=== PATIENT | male | born 1930 | race Caucasian/White ===

== ENCOUNTER 2017-07-15 16:10 | Emergency (ER) | payer MEDICARE, OTHER ==
[2016-06-20 12:52] VITALS: Wt 84.1 kg
--- NOTE | 2017-07-15 16:22 | ER Report ---
History and Physical Time Seen By MD: 16:21 Hx. of Stated Complaint: patient presents via EMS from [facility] after falling gettin gout of shower and hitting R back of head, fall was witnessed, no LOC, [facility] staff report patient was somewhat disoriented after fall. upon arrival patient is alert to person and place but not time HPI/ROS CHIEF COMPLAINT: Fall head trauma HISTORY OF PRESENT ILLNESS: 86-year-old male from a controlled living facility got up out of his shower with a witnessed he was turning and walking with his walker lost his balance fell to the side striking his head on drywall leaving an imprint of his head into the drywall not complaining of any head or neck discomfort no loss of consciousness was alert before the fall recalls the fall is alert after the fall was noted pinpoint pupils however he was on medication for pain which is most likely the indication and call for that patient is denying any chest back abdominal pain upper extremity pain sent here by EMS for emergent evaluation for probable head trauma REVIEW OF SYSTEMS: Respiratory: No cough, no dyspnea. Cardiovascular: No chest pain, no palpitations. Gastrointestinal: No vomiting, no abdominal pain. Musculoskeletal: No back pain. Remainder of the 14 system rev: Yes Allergies: Coded Allergies: No Known Allergies (Verified Allergy, Mild, 07/15/17) Home Meds Reported Medications Acetaminophen (TYLENOL EXTRA STRENGTH) 500 Mg Tablet, 500 MG PO, TAB 07/15/17 Warfarin Sodium (WARFARIN SODIUM) 5 Mg Tablet, 5 MG PO QDAY, TAB 07/15/17 Polyethylene Glycol 3350 (MIRALAX) 17 Gm Powd.pack, 8.5 GM PO DAILY, PKT 06/19/16 Aspirin (ASPIR 81) 81 Mg Tablet.dr, 81 MG PO QDAY, TAB 06/19/16 Furosemide (FUROSEMIDE) 40 Mg Tablet, 1 TAB PO DAILY, TAB 06/19/16 Sodium Fluoride (DENTA 5000 PLUS) 51 Gm Cream..g., 51 GM DT 06/19/16 Docusate Sodium (COLACE) 100 Mg Capsule, 100 MG PO, CAPSULE 06/19/16 Cyclosporine (RESTASIS) 1 Each Droperette, 1 EACH OP 06/19/16 Atorvastatin Calcium (LIPITOR) 10 Mg Tablet, 1 TAB PO QDAY, TAB 06/19/16 Melatonin (MELATONIN) 3 Mg Tablet, 3 MG PO 06/19/16 Dextran 70/Hypromellose (ARTIFICIAL TEARS) 1 Each Droperette, 1 EACH OP BID 06/19/16 Cholecalciferol (Vitamin D3) (VITAMIN D) 1,000 Unit Tablet, 1000 UNIT PO DAILY 06/19/16 Venlafaxine Hcl (VENLAFAXINE HCL ER) 37.5 Mg Cap.er.24h, 37.5 MG PO QDAY 06/19/16 Multivitamin (MULTI VITAMIN DAILY) 1 Each Tablet, 1 EACH PO 06/19/16 Losartan Potassium (LOSARTAN POTASSIUM) 25 Mg Tablet, 25 MG PO QDAY 06/19/16 Levothyroxine Sodium (LEVOTHYROXINE SODIUM) 88 Mcg Tablet, 88 MCG PO QDAY 06/19/16 Bisacodyl (DULCOLAX) 10 Mg Supp.rect, 10 MG RC, SUPP.RECT 06/19/16 Metoprolol Succinate (METOPROLOL SUCCINATE) 25 Mg Tab.er.24h, 1 TAB PO QDAY, TAB 01/19/15 Tamsulosin Hcl (Flomax) 0.4 Mg Cap, 0.4 MG PO QHS, 0 Refills 12/17/10 Oxybutynin Chloride (Ditropan) 5 Mg Tab, 10 MG PO HS, 0 Refills TAKE TWO 5 MG TABLETS ONCE PER DAY. 12/17/10 Discontinued Scripts Cefdinir 300 Mg Cap (OMNICEF 300 MG CAP (OR EQUIV)) 300 Mg Capsule, 300 MG PO BID, #6 CAPSULE Prov:YAEL CROCKETT MD 06/23/16 NYSTATIN 938304 UNT/ML Topical Cream (NYSTATIN 930423 UNT/ML Topical Cream) 15 Gm Cream..g., 0 GM TP BID, #0 Prov:YAEL CROCKETT MD 06/23/16 Acetaminophen (TYLENOL EXTRA STRENGTH) 500 Mg Tablet, 1000 MG PO Q8H Y for PAIN , #0 TAB Prov:YAEL CROCKETT MD 06/23/16 Warfarin Sodium (WARFARIN SODIUM) 5 Mg Tablet, 5 MG PO QDAY, #30 TAB Prov:MARGARITA CROCKER MD 01/24/15 Reviewed Nurses Notes: Yes Old Medical Records Reviewed: Yes Hx Smoking: No Smoking Status: Never Smoker Exposure to Second Hand Smoke?: No Hx Substance Use Disorder: No Hx Alcohol Use: No Constitutional Vital Sign - Last 24 Hours 07/15/17 07/15/17 07/15/17 07/15/17 16:13 16:14 16:25 16:30 Temp 97.8 Pulse 78 75 Resp 16 21 B/P (MAP) 187/115 (139) 187/115 163/113 (130) Pulse Ox 90 91 Physical Exam General Appearance: The patient is alert, has no immediate need for airway protection and no current signs of toxicity. No apparent distress Eyes: Equal round and minimally reactive pinpoint 2-3 mm equal bilateral Respiratory: Chest is non tender, lungs are clear to auscultation. Cardiac: regular rate and rhythm [ ] Gastrointestinal: Abdomen is soft and non tender, no masses, bowel sounds normal. Musculoskeletal: Normal Neck is supple and non tender. In C-spine precaution Extremities have full range of motion and are non tender. Skin: No rashes or lesions. [ ] DIFFERENTIAL DIAGNOSIS: After history and physical exam differential diagnosis was considered for intracranial bleed mass cervical spinal fracture Medical Decision Making Data Points Result Diagram: 07/15/17 1624 07/15/17 1624 Laboratory Hematology Test 07/15/17 16:24 Red Blood Count 4.32 M/uL (4.00-5.60) Mean Corpuscular Volume 94.9 fL (80.0-96.0) Mean Corpuscular Hemoglobin 32.4 pg (26.0-33.0) Mean Corpuscular Hemoglobin Concent 34.2 g/dL (32.0-36.0) Red Cell Distribution Width 16.4 % (11.5-14.5) Mean Platelet Volume 7.9 fL (7.2-11.1) Neutrophils (%) (Auto) 66.7 % (39.4-72.5) Lymphocytes (%) (Auto) 22.6 % (17.6-49.6) Monocytes (%) (Auto) 7.6 % (4.1-12.4) Eosinophils (%) (Auto) 2.8 % (0.4-6.7) Basophils (%) (Auto) 0.3 % (0.3-1.4) Nucleated RBC Relative Count (auto) 0.1 /100WBC Neutrophils # (Auto) 5.1 K/uL (2.0-7.4) Lymphocytes # (Auto) 1.7 K/uL (1.3-3.6) Monocytes # (Auto) 0.6 K/uL (0.3-1.0) Eosinophils # (Auto) 0.2 K/uL (0.0-0.5) Basophils # (Auto) 0.0 K/uL (0.0-0.1) Nucleated RBC Absolute Count (auto) 0.01 K/uL Sodium Level 142 mmol/L (137-145) Potassium Level 4.0 mmol/L (3.5-5.0) Chloride Level 102 mmol/L (98-107) Carbon Dioxide Level 26 mmol/L (22-30) Blood Urea Nitrogen 30 mg/dl (9-21) Creatinine 1.50 mg/dl (0.66-1.25) Glomerular Filtration Rate Calc 44.2 Random Glucose 98 mg/dl (75-110) Calcium Level 9.1 mg/dl (8.4-10.2) Total Bilirubin 1.0 mg/dl (0.2-1.3) Aspartate Amino Transf (AST/SGOT) 34 U/L (0-35) Alanine Aminotransferase (ALT/SGPT) 35 U/L (0-56) Alkaline Phosphatase 111 U/L (0-126) Troponin I 0.023 ng/ml Total Protein 8.1 gm/dl (6.3-8.2) Albumin 4.0 g/dl (3.5-5.0) Chemistry Test 07/15/17 16:24 White Blood Count 7.6 k/uL (4.5-11.0) Red Blood Count 4.32 M/uL (4.00-5.60) Hemoglobin 14.0 g/dL (14.0-18.0) Hematocrit 41.0 % (42.0-52.0) Mean Corpuscular Volume 94.9 fL (80.0-96.0) Mean Corpuscular Hemoglobin 32.4 pg (26.0-33.0) Mean Corpuscular Hemoglobin Concent 34.2 g/dL (32.0-36.0) Red Cell Distribution Width 16.4 % (11.5-14.5) Platelet Count 192 K/uL (150-450) Mean Platelet Volume 7.9 fL (7.2-11.1) Neutrophils (%) (Auto) 66.7 % (39.4-72.5) Lymphocytes (%) (Auto) 22.6 % (17.6-49.6) Monocytes (%) (Auto) 7.6 % (4.1-12.4) Eosinophils (%) (Auto) 2.8 % (0.4-6.7) Basophils (%) (Auto) 0.3 % (0.3-1.4) Nucleated RBC Relative Count (auto) 0.1 /100WBC Neutrophils # (Auto) 5.1 K/uL (2.0-7.4) Lymphocytes # (Auto) 1.7 K/uL (1.3-3.6) Monocytes # (Auto) 0.6 K/uL (0.3-1.0) Eosinophils # (Auto) 0.2 K/uL (0.0-0.5) Basophils # (Auto) 0.0 K/uL (0.0-0.1) Nucleated RBC Absolute Count (auto) 0.01 K/uL Glomerular Filtration Rate Calc 44.2 Calcium Level 9.1 mg/dl (8.4-10.2) Total Bilirubin 1.0 mg/dl (0.2-1.3) Aspartate Amino Transf (AST/SGOT) 34 U/L (0-35) Alanine Aminotransferase (ALT/SGPT) 35 U/L (0-56) Alkaline Phosphatase 111 U/L (0-126) Troponin I 0.023 ng/ml Total Protein 8.1 gm/dl (6.3-8.2) Albumin 4.0 g/dl (3.5-5.0) ED Course/Re-evaluation ED Course Clinical course medical decision making 86-year-old male mechanical fall striking his head on drywall no LOC responsive at the time this was a witnessed fall had C-spine were both performed no obvious fractures dislocation subluxation or intracranial issues chest x-ray shows no fractures pneumothoraces desist increased interstitial markings could be just normal parenchyma versus early pneumonitis his white count is negative he has no respiratory complaints I will not treat at this time but will advise him to follow-up with his attending symptomatic with primary care blood work looked fine EKG was unchanged and unremarkable patient would discharge diagnosis mechanical fall Decision to Disposition Date: Jul 15, 2017 Decision to Disposition Time: 17:41 Depart Departure Latest Vital Signs Vital Signs Date Time Temp Pulse Resp B/P (MAP) Pulse Ox O2 Delivery O2 Flow Rate FiO2 07/15/17 16:30 163/113 (130) 4/4/18 16:25 75 21 91 07/15/17 16:14 97.8 Impression: Primary Impression: Concussion Condition: Improved Disposition: HOME OR SELF-CARE Referrals: ROSANA GEE MD (PCP) 5 Days Patient Instructions: Concussion (DC) CAYETANO BRIZUELA MD Jul 15, 2017 16:22
--- NOTE | 2017-07-15 16:32 | EKG ---
FACILITY: [facility] [place] PATIENT NAME: DARIO HADDAD : [id number] MR: [id number] V: [id number] EXAM DATE: ORDERING PHYSICIAN: CAYETANO BRIZUELA TECHNOLOGIST: INES Blount Reason : TRAUMA Blood Pressure : / mmHG Vent. Rate : 073 BPM Atrial Rate : 064 BPM P-R Int : 000 ms QRS Dur : 104 ms QT Int : 436 ms P-R-T Axes : 000 050 140 degrees QTc Int : 480 ms Atrial fibrillation Nonspecific ST and T wave abnormality T flattening/inversion consistent with inferior ischemia vs normal variant When compared with ECG of 19-JAN-2015 13:51, Nonspecific T wave abnormality, improved in Inferior leads Confirmed by YAEL CROCKETT ([id number]) on 07/15/2017 5:50:33 PM Referred By: CHATA Confirmed By:YAEL CROCKETT
[2017-07-15 16:37] LABS: PLATELET COUNT, AUTOMATED 192 K/uL (150-450)
[2017-07-15] MEDS ORDERED: ACET500T68 PO (16:52)
[2017-07-15] MEDS ORDERED: WARF5TAB23 PO (16:52)
[2017-07-15 17:30] VITALS: BP 157/109
--- NOTE | 2017-07-15 17:30 | RADIOLOGY IMAGING REPORT ---
FACILITY: [facility] PATIENT NAME: Candelario Hernandez : 1930 MR: [id number] V: [id number] EXAM DATE: ORDERING PHYSICIAN: CAYETANO BRIZUELA TECHNOLOGIST: [facility] Patient: Candelario Hernandez : 1930 Visit/Account:[id number] Date of Sevice: 07/15/2017 Exam type: CHEST SINGLE AP History: trauma Comparison: June 22, 2016. Findings: Cardiac silhouette is enlarged. There are coarse initial changes throughout the lungs that appears s lightly more prominent when compared to the prior study. There is no evidence of pleural effusions. No gross evidence of pneumothorax or pneumomediastinum on this semiupright view. A small chronic bl unting of left costophrenic angle IMPRESSION: 1. Cardiomegaly with diffuse interstitial prominence of the lungs slightly more prominent when rocael red the prior study could represent superimposed acute interstitial process such as primary edema or interstitial pneumonia. Report Dictated By: Nancy Taylor MD at 07/15/2017 5:24 PM Report E-Signed By: Nancy Taylor MD at 07/15/2017 5:26 PM WSN:[id number]
--- NOTE | 2017-07-15 17:32 | RADIOLOGY IMAGING REPORT ---
FACILITY: [facility] [place] PATIENT NAME: Candelario Hernandez : 1930 MR: [id number] V: [id number] EXAM DATE: ORDERING PHYSICIAN: CAYETANO BRIZUELA TECHNOLOGIST: Location: [facility] [place] Patient: Candelario Hernandez : 1930 Visit/Account:[id number] Date of Sevice: 07/15/2017 EXAMINATION: Head CT without intravenous contrast History:Trauma TECHNIQUE: Contiguous axial images were obtained from the skull base to the vertex without intraven ous contrast. One of the following dose optimization techniques was utilized in the performance of th is exam: Automated exposure control; adjustment of the mA and/or kV according to the patient's size; or use of an iterative reconstruction technique. Specific details can be referenced in the facility 's radiology CT exam operational policy. COMPARISON STUDIES: 12/11/2010, 12/13/2010 FINDINGS: Visualized mastoid air cells / paranasal sinuses: negative Skull base / calvarium: negative White matter: Moderate chronic small vessel disease. Remote right basal ganglia infarct. Dural venous sinuses / arterial structures: Diffusely atherosclerotic. Ventricles / sulci / fissures: Enlarged but within normal limits for age. Masses / hemorrhage / midline shift: negative Extra-axial spaces: negative IMPRESSION: 1. No evidence of fracture or acute intracranial posttraumatic changes. 2. Moderate chronic small vessel disease with evidence of remote right basal ganglia infarct. Report Dictated By: Tomi Sahu MD at 07/15/2017 5:26 PM Report E-Signed By: Tomi Sahu MD at 07/15/2017 5:29 PM WSN:[id number]
--- NOTE | 2017-07-15 17:36 | RADIOLOGY IMAGING REPORT ---
FACILITY: [facility] PATIENT NAME: Candelario Hernandez : 1930 MR: [id number] V: [id number] EXAM DATE: ORDERING PHYSICIAN: CAYETANO BRIZUELA TECHNOLOGIST: Location: [facility] [place] Patient: Candelario Hernandez : 1930 Visit/Account:[id number] Date of Sevice: 07/15/2017 EXAMINATION: Cervical spine CT History: Trauma COMPARISON STUDIES: none TECHNIQUE: Axial images were obtained through the cervical spine without IV contrast administration. Coronal and sagittal reformatted images were obtained from the axial source data. One of the followi dose optimization techniques was utilized in the performance of this exam: Automated exposure cont rol; adjustment of the mA and/or kV according to the patient's size; or use of an iterative reconstr uction technique. Specific details can be referenced in the facility's radiology CT exam operational policy. FINDINGS: Moderate to severe degenerative disc changes throughout the cervical spine. No evidence of fracture. Craniocervical junction intact. Soft tissues notable for atherosclerotic calcifications. Lung apices clear. IMPRESSION: Multilevel spondylosis. No evidence of fracture. Report Dictated By: Tomi Sahu MD at 07/15/2017 5:29 PM Report E-Signed By: Tomi Sahu MD at 07/15/2017 5:32 PM WSN:[id number]
== END 2017-07-15 18:13 | disposition home or self-care (01) ==
LOC: ER 16:19
DX: S06.0X9A Concussion with loss of consciousness of unspecified duration, initial encounter (principal); W01.198A Fall on same level from slipping, tripping and stumbling with subsequent striking against other object, initial encounter; I48.91 Unspecified atrial fibrillation
CPT/HCPCS: 70450; 71045; 72125; 82040; 82247; 82310; 82374; 82435; 82565; 82947; 84075; 84132; 84155; 84295; 84450; 84460; 84484; 84520; 85025; 93005; 99283

== ENCOUNTER → 2017-07-15 | Outpatient (CLI) | payer MEDICARE, OTHER ==
[2016-06-20 12:52] VITALS: BMI 24.7
[~2017-07-15] MED LIST: ACE3 PO; ACE500 PO; ACET500T68 PO; ALB0.5 INH; AMI200 PO; AMLO2.5T74 PO; ASP325 PO; ASPI-1471 PO; ASPI-715 PO; ATOR10TA24 PO; AZIT-1 PO; AZIT500T47 PO; BISA-236 RC; CEF300 PO; CHOL100052 PO; CYCL1DRO6 OP; DEXT1DRO15 OP; DILCD120 PO; DILT180C80 PO; DOCU-416 PO; FIN5 PO; FLU20 PO; FURO-47 PO; FURO20TA19 PO; FURO20TA2 PO; GUALA600 PO; HYDR473S4 PO; IPRA3AMP21 IH; LEV75 PO; LEVO88TA45 PO; LISI-346 PO; LISI-362 PO; LOR5 PO; LOR5/325 PO; LOSA25TA50 PO; LOSA50TA72 PO; MEC125 PO; MEC25 PO; MECL-205 PO; MELA3TAB31 PO; METO25TA23 PO; METO50TA PO; MIR PO; MOM PO; MULT1TAB64 PO; NYST15CR32 TP; OLM20 PO; OXY5 PO; OXYXL5 PO; POLY17PO25 PO; POTA20TA94 PO; PRE20 PO; PRED20TA6 PO; SIMV-42 PO; SODI51CR DT; TAM4 PO; TERA10CA42 PO; TIO18R INH; TOLT2TAB5 PO; VAL80 PO; VENL37.53 PO; WAR2 PO; WAR5 PO; WAR75 PO; WARF5TAB23 PO; [UNRECOGNIZED DRUG - CODE] PO
== END ==
LOC: AMB 15:52
PROVIDERS: ATTEND Nurse Practitioner
DX: R51 Headache (principal); E16.2 Hypoglycemia, unspecified; W18.30XA Fall on same level, unspecified, initial encounter; Y92.129 Unspecified place in nursing home as the place of occurrence of the external cause
CPT/HCPCS: A0425; A0427

== ENCOUNTER → 2017-07-15 | Outpatient (CLI) | payer MEDICARE, OTHER ==
[2016-06-20 12:52] VITALS: BMI 24.7
== END ==
LOC: AMB 18:00
PROVIDERS: ATTEND Nurse Practitioner
DX: S06.0X0A Concussion without loss of consciousness, initial encounter (principal)
CPT/HCPCS: A0425; A0428

== ENCOUNTER → 2017-11-18 | Outpatient (REF) | payer MEDICARE, OTHER ==
[2016-06-20 12:52] VITALS: BMI 24.7
[~2017-11-18] MED LIST changes: +IPRA3AMP10 IH; -IPRA3AMP21 IH
== END ==
LOC: ZZSENDIN 07:10
PROVIDERS: ATTEND Family Medicine
DX: I21.4 Non-ST elevation (NSTEMI) myocardial infarction (principal)
CPT/HCPCS: 85027

== ENCOUNTER → 2017-12-16 | Outpatient (REF) | payer MEDICARE, OTHER ==
[2016-06-20 12:52] VITALS: BMI 24.7
== END ==
LOC: ZZSENDIN 17:10
PROVIDERS: ATTEND Family Medicine
DX: I21.4 Non-ST elevation (NSTEMI) myocardial infarction (principal); I25.10 Atherosclerotic heart disease of native coronary artery without angina pectoris
CPT/HCPCS: 85027

== ENCOUNTER → 2018-04-20 | Outpatient (REF) | payer MEDICARE, OTHER ==
[2016-06-20 12:52] VITALS: BMI 24.7
[~2018-04-20] MED LIST changes: -AMLO2.5T74 PO; +AMLO2.5T78 PO; -LOSA25TA50 PO; +LOSA25TA57 PO; -LOSA50TA72 PO; +LOSA50TA80 PO
== END ==
LOC: ZZSENDIN 12:00
PROVIDERS: ATTEND Family Medicine
DX: C44.319 Basal cell carcinoma of skin of other parts of face (principal)
CPT/HCPCS: 88305

== ENCOUNTER → 2018-05-24 | Outpatient (REF) | payer MEDICARE, OTHER, MEDICAID ==
[2016-06-20 12:52] VITALS: BMI 24.7
== END ==
LOC: ZZLCC 17:03
PROVIDERS: ATTEND Family Medicine
DX: I21.4 Non-ST elevation (NSTEMI) myocardial infarction (principal); Z79.899 Other long term (current) drug therapy
CPT/HCPCS: 85027

== ENCOUNTER → 2018-05-28 | Outpatient (CLI) | payer MEDICARE, OTHER ==
[2016-06-20 12:52] VITALS: BMI 24.7
== END ==
LOC: LAB 13:17
PROVIDERS: ATTEND Surgery
DX: C44.319 Basal cell carcinoma of skin of other parts of face (principal)
CPT/HCPCS: 88305

== ENCOUNTER 2018-08-18 02:38 | Inpatient (IN) | payer MEDICARE, OTHER ==
[2016-06-20 12:52] VITALS: Ht 182.9 cm; Wt 92.1 kg
[~2018-08-18] VITALS: Ht 182.9 cm; Wt 92.1 kg
[2018-08-18] VITALS (33 sets, daily range): BP systolic 77–133; BP diastolic 54–98
[~2018-08-18 02:38] MED LIST changes: -LORA-1455 PO; -MORP100S32 PO
[2018-08-18] MEDS ORDERED: NS(*) 0.9% 1000 ML BAG 1,000 ML IV ONE (02:48)
[2018-08-18] MEDS ORDERED: ONDANSETRON 4 MG/2 ML VIAL IVP ONE (02:50)
[2018-08-18 02:56] LABS: PLATELET COUNT, AUTOMATED 315 K/uL (150-450)
--- NOTE | 2018-08-18 03:07 | ER Report ---
History and Physical Time Seen By MD: 02:44 Hx. of Stated Complaint: WEAKNESS HPI/ROS CHIEF COMPLAINT: Vomiting, weakness HISTORY OF PRESENT ILLNESS: 87-year-old male sent from [facility] with vomiting and clamminess, diaphoresis. Patient was started on doxycycline on 08/14/18 for bronchitis. Patient is DO NOT RESUSCITATE. See detention paperwork for additional details. Patient's very lethargic on arrival. He follows simple instructions, not speaking verbally. Later after pain. Normal saline bolus. She is more alert and responsive. He's stating he is unable to cough up any phlegm. REVIEW OF SYSTEMS: Respiratory: As above Cardiovascular: No chest pain, no palpitations. Gastrointestinal: As above Musculoskeletal: No back pain. Allergies: Coded Allergies: No Known Allergies (Verified Allergy, Mild, 08/18/18) Home Meds Reported Medications Acetaminophen (TYLENOL EXTRA STRENGTH) 500 Mg Tablet, 500 MG PO, TAB 07/15/17 Warfarin Sodium (WARFARIN SODIUM) 5 Mg Tablet, 5 MG PO QDAY, TAB 07/15/17 Polyethylene Glycol 3350 (MIRALAX) 17 Gm Powd.pack, 8.5 GM PO DAILY, PKT 06/19/16 Aspirin (ASPIR 81) 81 Mg Tablet.dr, 81 MG PO QDAY, TAB 06/19/16 Furosemide (FUROSEMIDE) 40 Mg Tablet, 1 TAB PO DAILY, TAB 06/19/16 Sodium Fluoride (DENTA 5000 PLUS) 51 Gm Cream..g., 51 GM DT 06/19/16 Docusate Sodium (COLACE) 100 Mg Capsule, 100 MG PO, CAPSULE 06/19/16 Cyclosporine (RESTASIS) 1 Each Droperette, 1 EACH OP 06/19/16 Atorvastatin Calcium (LIPITOR) 10 Mg Tablet, 1 TAB PO QDAY, TAB 06/19/16 Melatonin (MELATONIN) 3 Mg Tablet, 3 MG PO 06/19/16 Dextran 70/Hypromellose (ARTIFICIAL TEARS) 1 Each Droperette, 1 EACH OP BID 06/19/16 Cholecalciferol (Vitamin D3) (VITAMIN D) 1,000 Unit Tablet, 1000 UNIT PO DAILY 06/19/16 Venlafaxine Hcl (VENLAFAXINE HCL ER) 37.5 Mg Cap.er.24h, 37.5 MG PO QDAY 06/19/16 Multivitamin (MULTI VITAMIN DAILY) 1 Each Tablet, 1 EACH PO 06/19/16 Losartan Potassium (LOSARTAN POTASSIUM) 25 Mg Tablet, 25 MG PO QDAY 06/19/16 Levothyroxine Sodium (LEVOTHYROXINE SODIUM) 88 Mcg Tablet, 88 MCG PO QDAY 06/19/16 Bisacodyl (DULCOLAX) 10 Mg Supp.rect, 10 MG RC, SUPP.RECT 06/19/16 Metoprolol Succinate (METOPROLOL SUCCINATE) 25 Mg Tab.er.24h, 1 TAB PO QDAY, TAB 01/19/15 Tamsulosin Hcl (Flomax) 0.4 Mg Cap, 0.4 MG PO QHS, 0 Refills 12/17/10 Oxybutynin Chloride (Ditropan) 5 Mg Tab, 10 MG PO HS, 0 Refills TAKE TWO 5 MG TABLETS ONCE PER DAY. 12/17/10 Past Medical/Surgical History Past medical history dysuria, dysphagia during oral phase, difficulty walking, not otherwise classified repeated falls, insomnia, nonspecific, hypothyroidism, unspecific, hyperlipidemia on specific major depressive disorder, single episode, unspecified non-ST elevation myocardial infarction 05/07/2015 ventricular tachycardia, atrial fibrillation, chronic systolic congestive heart failure, osteoarthritis, chronic kidney disease stage III, moderate, BPH, with out lower urinary tract symptoms Reviewed Nurses Notes: Yes Old Medical Records Reviewed: Yes Hx Smoking: No Smoking Status: Never Smoker Exposure to Second Hand Smoke?: No Hx Substance Use Disorder: No Hx Alcohol Use: No Constitutional Vital Sign - Last 24 Hours 08/18/18 08/18/18 08/18/18 08/18/18 02:38 02:42 02:45 03:00 Temp 97.9 Pulse ??? 94 Resp 18 B/P (MAP) 98/48 98/49 (65) 81/57 (65) Pulse Ox 96 O2 Delivery Nasal Cannula 08/18/18 08/18/18 08/18/18 08/18/18 03:30 03:38 03:46 03:50 Pulse 94 88 Resp 22 16 B/P (MAP) 92/63 (73) 107/72 (84) Pulse Ox 100 08/18/18 08/18/18 08/18/18 08/18/18 03:50 03:53 04:00 04:01 Pulse 91 91 90 Resp 16 Pulse Ox 97 99 99 O2 Delivery Nasal Cannula O2 Flow Rate 3.0 08/18/18 08/18/18 08/18/18 04:05 04:20 04:30 Pulse 89 85 Resp 23 25 B/P (MAP) 102/65 (77) Pulse Ox 100 95 Physical Exam Borderline hypotensive, afebrile, very lethargic, patient's O2 saturations are 90% on his usual 3 L. General Appearance: The patient is alert, has no immediate need for airway protection and no current signs of toxicity. Cool, pale, dry skin HEENT: Pupils equal and round no injection. Oropharynx with dry mucous membranes, Respiratory: Chest is non tender, right basilar Rales Cardiac: Irregular rate and rhythm, distant heart sounds Gastrointestinal: Abdomen is soft and non tender, no masses, bowel sounds normal. Musculoskeletal: Neck: Neck is supple and non tender. No JVD, no lymphadenopathy Extremities have full range of motion and are non tender. No edema, no calf tenderness Skin: No rashes or lesions. DIFFERENTIAL DIAGNOSIS: After history and physical exam differential diagnosis was considered for shortness of breath including but not limited to pulmonary infectious process, COPD, asthma, pulmonary embolus and congestive heart failure. Medication intolerance Medical Decision Making Data Points Result Diagram: 08/18/18 1915 08/18/18 1231 Laboratory Hematology Test 08/18/18 02:40 Total Bilirubin 0.9 mg/dl (0.2-1.3) Aspartate Amino Transf (AST/SGOT) 27 U/L (0-35) Alanine Aminotransferase (ALT/SGPT) 16 U/L (0-56) Alkaline Phosphatase 79 U/L (0-126) B-Type Natriuretic Peptide 383 pg/ml (0-100) Total Protein 7.4 g/dl (6.3-8.2) Albumin 3.5 g/dl (3.5-5.0) Amylase Level 84 U/L (0-110) Lipase 42 U/L (23-300) Chemistry Test 08/18/18 02:40 Total Bilirubin 0.9 mg/dl (0.2-1.3) Aspartate Amino Transf (AST/SGOT) 27 U/L (0-35) Alanine Aminotransferase (ALT/SGPT) 16 U/L (0-56) Alkaline Phosphatase 79 U/L (0-126) B-Type Natriuretic Peptide 383 pg/ml (0-100) Total Protein 7.4 g/dl (6.3-8.2) Albumin 3.5 g/dl (3.5-5.0) Amylase Level 84 U/L (0-110) Lipase 42 U/L (23-300) EKG/Imaging EKG Interpretation 12 lead EK Rhythm: Atrial fibrillation rate 95 bpm [place]: normal QRS: Old inferior Q waves ST segments: normal, comparison to previous EKG dated 07/15/17, no significant change Imaging X-ray: Single view portable x-ray was obtained. I viewed the images myself on the PACS system. My interpretation of the images is: There is haziness at the right base, questionable significance, comparison to previous chest film 07/15/17 probably no significant change. The radiologist interpretation had no clinically significant variation from this interpretation. ED Course/Re-evaluation Clinical Indication for ER IV: Hydration, IV Access ED Course Patient was admitted to an examination room. H&P was done. The differential diagnoses was considered. Patient was given a normal saline 500 mL bolus. He responded well to that. His pressures up. He's more alert and responsive. After hydration. His diagnostic studies return. Elevated white blood cell count of 17,000 with a left shift. His BUN/creatinine are nearly double his baseline chronic kidney disease. His INR returned at 5.4. His chest x-ray shows no obvious infiltrate, unchanged Compared to previous film from nearly a year ago 07/15/17. 08/18/2018 4:25:24 am case discussed with Dr. Sreedhar Birch hospitalist on- call, who accepts the patient for admission. Decision to Disposition Date: August 18, 2018 Decision to Disposition Time: 03:32 Depart Departure Latest Vital Signs Vital Signs Date Time Temp Pulse Resp B/P (MAP) Pulse Ox O2 Delivery O2 Flow Rate FiO2 08/18/18 04:30 102/65 (77) 08/18/18 04:20 85 25 95 08/18/18 03:50 Nasal Cannula 3.0 08/18/18 02:42 97.9 Impression: Primary Impression: COPD exacerbation Additional Impressions: Dehydration Leukocytosis Vomiting Congestive heart failure Atrial fibrillation Chronic anticoagulation Elevated INR CKD (chronic kidney disease) stage 3, GFR 30-59 ml/min Condition: Improved Disposition: Admitted from ER Referrals: ROSANA GEE MD (PCP) Problem Qualifiers Additional Impressions: Leukocytosis Leukocytosis type: unspecified Qualified Codes: D72.829 - Elevated white blood cell count, unspecified Vomiting Vomiting type: unspecified Vomiting Intractability: unspecified Nausea presence: unspecified Qualified Codes: R11.10 - Vomiting, unspecified Congestive heart failure Heart failure type: systolic Heart failure chronicity: chronic Qualified Codes: I50.22 - Chronic systolic (congestive) heart failure Atrial fibrillation Atrial fibrillation type: chronic Qualified Codes: I48.2 - Chronic atrial fibrillation SEBASTIAN MOREL DO August 18, 2018 03:07
--- NOTE | 2018-08-18 03:17 | EKG ---
FACILITY: [facility] - [place] PATIENT NAME: DARIO HADDAD : [id number] MR: [id number] V: [id number] EXAM DATE: ORDERING PHYSICIAN: SEBASTIAN MOREL TECHNOLOGIST: LUIS Blount Reason : CARDIAC Blood Pressure : / mmHG Vent. Rate : 095 BPM Atrial Rate : 153 BPM P-R Int : 000 ms QRS Dur : 098 ms QT Int : 392 ms P-R-T Axes : 000 004 192 degrees QTc Int : 492 ms Atrial fibrillation Inferior infarct , age undetermined Nonspecific ST-T findings inferolaterally Abnormal ECG Confirmed by SANCHEZ CROCKER ([id number]) on 08/18/2018 6:13:20 AM Referred By: Confirmed By:SANCHEZ CROCKER
--- NOTE | 2018-08-18 03:32 | RADIOLOGY IMAGING REPORT ---
FACILITY: [facility] [place] PATIENT NAME: Candelario Hernandez : 1930 MR: [id number] V: [id number] EXAM DATE: ORDERING PHYSICIAN: SEBASTIAN MOREL TECHNOLOGIST: Location: [facility] - [place] Patient: Candelario Hernandez : 1930 Visit/Account:[id number] Date of Sevice: 08/18/2018 CHEST SINGLE AP 08/18/2018 02:58 hours. HISTORY: Vomiting. Dyspnea. COMPARISON: 07/15/2017 and studies dating to 12/05/2005. TECHNIQUE: Portable AP view of the chest. FINDINGS: Tubes/lines/hardware: There are external chest leads. Pulmonary/pleura: There is mild chronic interstitial prominence, greatest at the bases. There is no p neumothorax or pleural effusion. Cardiomediastinal: The cardiac silhouette is enlarged, stable. The mediastinal silhouette is within n ormal limits. There is mild aortic calcification. Bones/soft tissues: No acute osseous abnormality. There is degenerative change of the glenohumeral murtaza ints. The visible abdomen is normal. IMPRESSION: 1. Stable chest without acute process. 2. Stable mild enlargement of the cardiac silhouette. Report Dictated By: Lindsay Mendoza at 08/18/2018 3:25 AM Report E-Signed By: Lindsay Mendoza at 08/18/2018 3:27 AM WSN:[id number]
[2018-08-18] MEDS ORDERED: ALBUTEROL/IPRATROPIUM 3 ML NEB NEB ONE (03:40)
[2018-08-18] MEDS ORDERED: methylPREDNIS SUCC 125 MG/2ML IVP ONE (03:40)
[2018-08-18 03:45] LABS: INR 5.41
--- NOTE | 2018-08-18 05:41 | History & Physical ---
History of Present Illness Chief Complaint "It hurts when I cough" History of Present Illness 87yo male with PMHx significant for dementia, a-fib, CRF, CHF who currently resides at [facility]. shelter caretakers reports decreased level of awareness, vomiting, diaphoresis. Upon arrival to the ER he was rather lethargic, but it is reported he improved with IV fluids. He complains of some cough with pain in his right groin. He denied CP/dyspnea/sputum. He did not answer when asked if he had any changes in his bowel movements or urinary pattern. He was evaluated in the ER and found to have elevated WBC count, lactate, BUN/Cr. His CXR did not show a definite infiltrate. They were unable to collect a urine sample due to scarred/un-retractable foreskin. He was recommended for admission. History Problems: (1) Dementia Status: Chronic (2) COPD (chronic obstructive pulmonary disease) Status: Chronic (3) CHF (congestive heart failure) Status: Chronic (4) HTN (hypertension) Status: Chronic (5) Hypothyroid Status: Chronic (6) BPH (benign prostatic hyperplasia) Status: Chronic (7) Atrial fibrillation Status: Chronic (8) CKD (chronic kidney disease) stage 3, GFR 30-59 ml/min Status: Chronic (9) History of repair of left rotator cuff Status: Chronic (10) History of repair of right rotator cuff Status: Chronic (11) History of appendectomy Status: Chronic (12) History of cholecystectomy Status: Chronic Home Meds Reported Medications Acetaminophen (TYLENOL EXTRA STRENGTH) 500 Mg Tablet, 500 MG PO, TAB 07/15/17 Warfarin Sodium (WARFARIN SODIUM) 5 Mg Tablet, 5 MG PO QDAY, TAB 07/15/17 Polyethylene Glycol 3350 (MIRALAX) 17 Gm Powd.pack, 8.5 GM PO DAILY, PKT 06/19/16 Aspirin (ASPIR 81) 81 Mg Tablet.dr, 81 MG PO QDAY, TAB 06/19/16 Furosemide (FUROSEMIDE) 40 Mg Tablet, 1 TAB PO DAILY, TAB 06/19/16 Sodium Fluoride (DENTA 5000 PLUS) 51 Gm Cream..g., 51 GM DT 06/19/16 Docusate Sodium (COLACE) 100 Mg Capsule, 100 MG PO, CAPSULE 06/19/16 Cyclosporine (RESTASIS) 1 Each Droperette, 1 EACH OP 06/19/16 Atorvastatin Calcium (LIPITOR) 10 Mg Tablet, 1 TAB PO QDAY, TAB 06/19/16 Melatonin (MELATONIN) 3 Mg Tablet, 3 MG PO 06/19/16 Dextran 70/Hypromellose (ARTIFICIAL TEARS) 1 Each Droperette, 1 EACH OP BID 06/19/16 Cholecalciferol (Vitamin D3) (VITAMIN D) 1,000 Unit Tablet, 1000 UNIT PO DAILY 06/19/16 Venlafaxine Hcl (VENLAFAXINE HCL ER) 37.5 Mg Cap.er.24h, 37.5 MG PO QDAY 06/19/16 Multivitamin (MULTI VITAMIN DAILY) 1 Each Tablet, 1 EACH PO 06/19/16 Losartan Potassium (LOSARTAN POTASSIUM) 25 Mg Tablet, 25 MG PO QDAY 06/19/16 Levothyroxine Sodium (LEVOTHYROXINE SODIUM) 88 Mcg Tablet, 88 MCG PO QDAY 06/19/16 Bisacodyl (DULCOLAX) 10 Mg Supp.rect, 10 MG RC, SUPP.RECT 06/19/16 Metoprolol Succinate (METOPROLOL SUCCINATE) 25 Mg Tab.er.24h, 1 TAB PO QDAY, TAB 01/19/15 Tamsulosin Hcl (Flomax) 0.4 Mg Cap, 0.4 MG PO QHS, 0 Refills 12/17/10 Oxybutynin Chloride (Ditropan) 5 Mg Tab, 10 MG PO HS, 0 Refills TAKE TWO 5 MG TABLETS ONCE PER DAY. 12/17/10 Allergies: Coded Allergies: No Known Allergies (Verified Allergy, Mild, 08/18/18) Other Social/Family Hx Currently unobtainable. Hx Smoking: No Smoking Status: Never Smoker Exposure to Second Hand Smoke?: No Caffeine Intake: Coffee Caffeine/Cups Per Day: 3 CUPS A DAY Hx Alcohol Use: No Hx Substance Use Disorder: No Social Drug Use: Former Social Drugs: Marijuana Review of Systems Other Currently unobtainable. Exam Vital Signs Vital Signs Date Time Temp Pulse Resp B/P (MAP) Pulse Ox O2 Delivery O2 Flow Rate FiO2 08/18/18 04:30 102/65 (77) 08/18/18 04:20 85 25 95 08/18/18 03:50 Nasal Cannula 3.0 08/18/18 02:42 97.9 General Appearance: Other (Somewhat somnolent, but awakens easily. He speaks very slowly.) Neuro: Other (generalized weakness in all muscle groups) Eyes: PERRLA, Other (decreased facial expressions) ENT: Other (Oral mucosa/lips very dry) Neck: No Masses Cardiovascular: Other (Irregular with distant tones) Respiratory: Other (Poor effort, but fairly clear) Chest: No Tenderness GI: Other (Fullness in RLQ, which was tender to palpation, but seemed to resolve/reduce with minimal pressure) : Other (Foreskin is not retractable/small amount of blood is noted (ER did try to place urinary cath)) Extremities: Warm, Perfused Integumentary: Generalized Fragile Skin Psych: Other (He is oriented to person and place, but not time) Medical Decision Making Data Points Result Diagram: 08/18/18 0240 08/18/18 024 Item Value Date Time Lipase 42 U/L 08/18/18 0240 Amylase Level 84 U/L 08/18/18 0240 Albumin 3.5 g/dl 08/18/18 024 Total Protein 7.4 g/dl 08/18/18 0240 B-Type Natriuretic Peptide 383 pg/ml H 08/18/18 0240 Troponin I 0.046 ng/ml 08/18/18 0240 Alkaline Phosphatase 79 U/L 08/18/18 0240 Alanine Aminotransferase (ALT/SGPT) 16 U/L 08/18/18 0240 Aspartate Amino Transf (AST/SGOT) 27 U/L 08/18/18 0240 Total Bilirubin 0.9 mg/dl 08/18/18 0240 Calcium Level 8.9 mg/dl 08/18/18 0240 Lactate 2.6 mmol/L H 08/18/18 0424 Prothromb Time International Ratio 5.41 *H 08/18/18 0240 Prothrombin Time 51.0 seconds H 08/18/18 0240 EKG / Imaging Imaging PATIENT NAME: Candelario Hernandez : 1930 MR: [id number] V: [id number] EXAM DATE: ORDERING PHYSICIAN: SEBASTIAN MOREL TECHNOLOGIST: Location: [facility] - [place] Patient: Candelario Hernandez : 1930 Visit/Account:[id number] Date of Sevice: 08/18/2018 CHEST SINGLE AP 08/18/2018 02:58 hours. HISTORY: Vomiting. Dyspnea. COMPARISON: 07/15/2017 and studies dating to 12/05/2005. TECHNIQUE: Portable AP view of the chest. FINDINGS: Tubes/lines/hardware: There are external chest leads. Pulmonary/pleura: There is mild chronic interstitial prominence, greatest at the bases. There is no pneumothorax or pleural effusion. Cardiomediastinal: The cardiac silhouette is enlarged, stable. The mediastinal silhouette is within normal limits. There is mild aortic calcification. Bones/soft tissues: No acute osseous abnormality. There is degenerative change of the glenohumeral joints. The visible abdomen is normal. IMPRESSION: 1. Stable chest without acute process. 2. Stable mild enlargement of the cardiac silhouette. Report Dictated By: Lindsay Mendoza at 08/18/2018 3:25 AM Report E-Signed By: Lindsay Mendoza at 08/18/2018 3:27 AM WSN:[id number] Assessment and Plan Problems: (1) Abdominal pain Status: Acute Assessment & Plan: It appears he may have an abdominal wall hernia in his RLQ. It seemed to reduce very easily, but could be responsible for his symptoms. Will need to get CT scan as soon as possible to evaluate. Will also try to get UA and culture. Will probably need urology to see as his foreskin is not retractable. Further evaluation and treatment pending these results. (2) Elevated INR Status: Acute Assessment & Plan: Will hold his warfarin. Monitor INR. No evidence of bleeding at this time. (3) Dehydration Status: Acute Assessment & Plan: He appears at least moderately dehydrated with some acute on chronic renal failure. Will give gentle IV fluids as he has a history of CHF. Watch labs. (4) Atrial fibrillation Status: Chronic Assessment & Plan: Chronic. He has been on metoprolol for rate control. Will hold for now as his BPs have been marginal. Will also hold his warfarin as his INR is supra-therapeutic. Monitor lab. (5) Hypothyroid Status: Chronic Assessment & Plan: Will place on IV replacement as he will be kept NPO initially. (6) Dementia Status: Chronic Assessment & Plan: Appears mild-moderate. It does not appear he has been on any medication specifically for this. (7) CKD (chronic kidney disease) stage 3, GFR 30-59 ml/min Status: Chronic Assessment & Plan: It appears his baseline creatinine is usually in the 1.5-1.7 range. It is currently 2.4 at the time of admission. He has some acute on ch ronic renal failure due to dehydration. Will give gentle IV fluids and monitor. (8) Congestive heart failure Status: Chronic Assessment & Plan: His echocardiogram from 2014 showed EF in mid 40% range. He has been managed with metoprolol, losartan, furosemide. Will hold these for now as he appears to be moderately dehydrated and BPs have been marginal. Copies to: ROSANA GEE MD ; Venous Thromboembolism Antithrombotics Is Pt On Any Antithrombotics?: Yes Heart Failure Ejection Fraction %: 46 RVSP (mmHg): 38 Is Patient on JOSE G Inhibitor?: No Is Patient on Beta Carin?: Yes Admission Weight: 181 Exam Sepsis Risk: Severe Sepsis Risk Problem Qualifiers (1) Atrial fibrillation: Atrial fibrillation type: chronic Qualified Codes: I48.2 - Chronic atrial fibrillation (2) Congestive heart failure: Heart failure type: systolic Heart failure chronicity: chronic Qualified Codes: I50.22 - Chronic systolic (congestive) heart failure SANCHEZ CROCKER MD August 18, 2018 05:41
[2018-08-18] MEDS: NS(*) 0.9% 1000 ML BAG 1,000 ML IV PRN ×2 (06:18→22:30)
[2018-08-18] MEDS: LEVOTHYROXINE SOD 100 MCG VIAL IVP SCH (08:56)
--- NOTE | 2018-08-18 08:56 | RADIOLOGY IMAGING REPORT ---
FACILITY: [facility] PATIENT NAME: Candelario Hernandez : 1930 MR: [id number] V: [id number] EXAM DATE: ORDERING PHYSICIAN: SANCHEZ CROCKER TECHNOLOGIST: Location: [facility] - [place] Patient: Candelario Hernandez : 1930 Visit/Account:[id number] Date of Sevice: 08/18/2018 CT ABDOMEN PELVIS W/O CON History: 87-year-old male with right lower quadrant pain. Technique: CT images were obtained through the abdomen and pelvis without the injection of intravenou s contrast. Coronal and sagittal reformations were then created. One of the following dose optimization techniques was utilized in the performance of this exam: Autom ated exposure control; adjustment of the mA and/or kV according to the patient's size; or use of an i terative reconstruction technique. Specific details can be referenced in the facility's radiology C T exam operational policy. Comparison study:None Findings: Lung bases: There is a small right pleural effusion. There is bibasilar passive atelectasis; right s annie greater than left. Hepatobiliary: The liver is unremarkable on this noncontrast study. The gallbladder is surgically ab sent and there are surgical clips in gallbladder fossa. Subtle foci of calcification in the biliary system probably represent vascular calcification. Spleen: Negative. Adrenals: Negative Pancreas: Negative. Kidneys/genitourinary/retroperitoneum: There is bilateral renal cortical thinning suggestive of atrop hy. 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 There is no resultant hydronephrosis but there is anterior d isplacement of the right kidney due to mass effect. There is a 5.3 cm parapelvic cyst in the left kidney. There is a focus of calcification inferiorly a ssociated with this cyst and there are other foci of calcification superiorly. These could represent calcifications in the wall the cyst or nonobstructing renal calculi. There is no retroperitoneal ly mphadenopathy.. Bowel/peritoneum/mesentery: There are no dilated loops of large or small bowel to suggest ileus or ob struction. There is diverticulosis of the sigmoid colon without diverticulitis. Normal appendix is not seen and it may be surgically absent. Pelvic/genital urinary: There is a bladder diverticula projecting left anterolaterally from the bladd er. There is no bladder calculus. The prostate is enlarged and there are foci of calcification with in the prostate gland. There is no inguinal hernia. Vessels: There is an infrarenal abdominal aortic aneurysm measuring 3.4 x 4.5 cm in its greatest AP a nd transverse dimensions. There is prominent evidence chronic location of the aorta and iliac vessel s. There is prominent visceral artery calcification.. Lymph node: Negative. Body wall/bones: Retroperitoneal hematoma on the right side related to a bleed in the psoas muscle in this patient on chronic anticoagulation. There is extension of blood into the posterior pararenal s pace and into the right lateral abdominal wall. There is a small amount of ascites around the liver. Peritoneal cavity: Minimal ascites related to the patient's known retroperitoneal hematoma. IMPRESSION: 1. In this patient on chronic anticoagulation there is a hematoma of the right psoas muscle that has ruptured into the posterior retroperitoneal space and into the right lateral chest wall. There is r esultant ascites and anterior displacement of the kidney. This accounts for the patient's presenting pain. Retroperitoneal blood extends into the right side of the pelvis as well. 2. Small right pleural effusion with passive atelectasis related to splinting from retroperitoneal p ain. 3. Status post cholecystectomy. 4. Infrarenal abdominal aortic aneurysm measuring 3.9 x 4.5 cm in its greatest AP and transverse dim ensions. 5. Diverticulo is of the sigmoid and left colon without findings of diverticulitis. Results were called to Javon Sheikh M.D. At 08/18/2018 8:50 AM. Report Dictated By: Bob Machado MD at 08/18/2018 8:36 AMReport E-Signed By: Bob Machado MD at 08/19/19 8:51 AM WSN:[id number]
[2018-08-18] MEDS ORDERED: PHYTONADIONE (*) 10 MG/ML AMP 10 MG in NS(*) 0.9% 50 ML BAG 50 ML IVPB ONE (09:00)
--- NOTE | 2018-08-18 09:46 | NUR ---
Contacted Jenny Hernandez and she gave consent for blood products.
--- NOTE | 2018-08-18 10:41 | Medical Nutrition Therapy ---
Nutrition Anthropometrics Height (Inches): 72 Weight (Pounds): 190 Weight (Calculated Kilograms): 86.324 BMI: 25.9 Ugo Nutrition Score: Adequate Ugo Nutrition Risk Score: 18 Dietary Referral Nutrition Risk Factors: Diff. Swallowing Nutrition Risk Comment: Physical Findings Physical Appearance: Overweight BMI 25-29 Skin Appearance Skin Appearance: Edema Edema Location Modifier: Both Edema Location: Feet Type of Edema: Degree of Edema: Non-pitting Gastrointestinal Symptoms GI Symtoms: Tube Present: Bowel Sounds: Recent Bowel Pattern: Stool Characteristics: Nutritional Diagnosis Nutritional Risk Acuity 2: Chronic Renal Failure, Dysphagia, Swallowing Problem Nutritional Risk Acuity 3: Nausea, COPD Unstable Past Medical History: HX of CHF, Atril Fib, HTN, BPH, CHF, COPD Nutritional Acuity: 2-Moderate Nutrition Diagnosis: Altered GI Function Nutrition Etiology: Physiological Causes Nutrition Problem/Etiology/Sym: Altered GI function related to Physiological causes as evidence by COPD and exasperation Energy Requirement: 2030 (HB AF 1.3 190.3lb) Protein Requirement: 86 (1g/kg) Fluid Requirement: 2030 (1ml/tiffanie) Diet Type: NPO (Nothing by Mouth) Nutrition Monitoring & Eval RD Patient Assessment Time: [address] Assessment Type: RD Assessment Patient Nutrition Acuity: 2-Moderate Follow Up Date: August 20, 2018 Nutritional Comment: 08/18 Pt dx with COPD exaserbation, abdominal pain, dehydration, A-fib, hypothyroid, dementia, CKD-3, and CHF. Pt has difficulty swallowing and was previously on dysphagia diet. Pt is currently on NPO starting 08/18. Pt has high BNP 383, creatinine 2.4, and a BUN of 58. Pt has a low Hgb 9.1 and a Hct 27.6. Will continue to monitor pt. KRUNAL BROWNE August 18, 2018 10:25
[2018-08-18] MEDS ORDERED: NS(*) 0.9% 500 ML BAG 500 ML ONE (10:43)
[2018-08-18] MEDS ORDERED: ALBUTEROL 2.5 MG/3 ML NEB NEB PRN (11:45)
[2018-08-18 12:40] LABS: PLATELET COUNT, AUTOMATED 279 K/uL (150-450)
--- NOTE | 2018-08-18 19:20 | General Surgery Consultation ---
History of Present Illness Requesting Physician Dr. Sheikh, hospitalist service Reason for Consult Retroperitoneal hematoma and supratherapeutic anticoagulated patient Chief Complaint Abdominal pain History of Present Illness 87-year-old gentleman who is a poor historian due to dementia is admitted to the hospitalist service with a new finding of retroperitoneal hematoma seemingly stemming from his right so as muscle. No history of known trauma. Patient denies any history of trauma but not certain if this is reliable. He is on Coumadin for A. fib. He also has known dementia, CRF, CHF. He lives at [facility]. History Problems: (1) Atrial fibrillation Status: Chronic (2) COPD (chronic obstructive pulmonary disease) Status: Chronic (3) CHF (congestive heart failure) Status: Chronic (4) HTN (hypertension) Status: Chronic (5) BPH (benign prostatic hyperplasia) Status: Chronic (6) Dementia Status: Chronic (7) Hypothyroid Status: Chronic (8) Congestive heart failure Status: Chronic (9) CKD (chronic kidney disease) stage 3, GFR 30-59 ml/min Status: Chronic (10) History of cholecystectomy Status: Chronic (11) History of appendectomy Status: Chronic (12) History of repair of right rotator cuff Status: Chronic (13) History of repair of left rotator cuff Status: Chronic Home Meds Reported Medications Acetaminophen (TYLENOL EXTRA STRENGTH) 500 Mg Tablet, 500 MG PO, TAB 07/15/17 Warfarin Sodium (WARFARIN SODIUM) 5 Mg Tablet, 5 MG PO QDAY, TAB 07/15/17 Polyethylene Glycol 3350 (MIRALAX) 17 Gm Powd.pack, 8.5 GM PO DAILY, PKT 06/19/16 Aspirin (ASPIR 81) 81 Mg Tablet.dr, 81 MG PO QDAY, TAB 06/19/16 Furosemide (FUROSEMIDE) 40 Mg Tablet, 1 TAB PO DAILY, TAB 06/19/16 Sodium Fluoride (DENTA 5000 PLUS) 51 Gm Cream..g., 51 GM DT 06/19/16 Docusate Sodium (COLACE) 100 Mg Capsule, 100 MG PO, CAPSULE 06/19/16 Cyclosporine (RESTASIS) 1 Each Droperette, 1 EACH OP 06/19/16 Atorvastatin Calcium (LIPITOR) 10 Mg Tablet, 1 TAB PO QDAY, TAB 06/19/16 Melatonin (MELATONIN) 3 Mg Tablet, 3 MG PO 06/19/16 Dextran 70/Hypromellose (ARTIFICIAL TEARS) 1 Each Droperette, 1 EACH OP BID 06/19/16 Cholecalciferol (Vitamin D3) (VITAMIN D) 1,000 Unit Tablet, 1000 UNIT PO DAILY 06/19/16 Venlafaxine Hcl (VENLAFAXINE HCL ER) 37.5 Mg Cap.er.24h, 37.5 MG PO QDAY 06/19/16 Multivitamin (MULTI VITAMIN DAILY) 1 Each Tablet, 1 EACH PO 06/19/16 Losartan Potassium (LOSARTAN POTASSIUM) 25 Mg Tablet, 25 MG PO QDAY 06/19/16 Levothyroxine Sodium (LEVOTHYROXINE SODIUM) 88 Mcg Tablet, 88 MCG PO QDAY 06/19/16 Bisacodyl (DULCOLAX) 10 Mg Supp.rect, 10 MG RC, SUPP.RECT 06/19/16 Metoprolol Succinate (METOPROLOL SUCCINATE) 25 Mg Tab.er.24h, 1 TAB PO QDAY, TAB 01/19/15 Tamsulosin Hcl (Flomax) 0.4 Mg Cap, 0.4 MG PO QHS, 0 Refills 12/17/10 Oxybutynin Chloride (Ditropan) 5 Mg Tab, 10 MG PO HS, 0 Refills TAKE TWO 5 MG TABLETS ONCE PER DAY. 12/17/10 Allergies: Coded Allergies: No Known Allergies (Verified Allergy, Mild, 08/18/18) Review of Systems All Systems Reviewed/Normal: Yes, Except as Noted Gastrointestinal: Abdominal Pain Exam Vital Signs Vital Signs Date Time Temp Pulse Resp B/P (MAP) Pulse Ox O2 Delivery O2 Flow Rate FiO2 08/18/18 16:50 97.9 93 18 97/78 (84) 99 Nasal Cannula 2.0 General Appearance: Alert, Awake, No Acute Distress, Afebrile GI: Other (soft but diffuse tenderness to palpation, no peritoneal signs) Extremities: Warm, Perfused Medical Decision Making Data Points Result Diagram: 08/18/18 1231 08/18/18 1231 Assessment and Plan Problems: (1) Nontraumatic retroperitoneal hematoma Status: Acute Assessment & Plan: 08/18/18: In general, retroperitoneal hematomas are managed nonoperatively. The 1st step would be to reverse his coagulopathy due to Coumadin. Recommend serial INRs with vitamin K and FFP transfusion until INR is less than 1.5. Would follow H&H closely and transfuse packed red blood cells as needed. If he continues to drop his hemoglobin then may require transfer for interventional radiology to look for active extravasation and embolize it. Would also repeat a CT scan this evening and if the hematoma is actively expanding then would refer for urgent interventional radiology to look for active extravasation and embolization. This patient has significant medical comorbidities and is not a good surgical candidate although surgery would be considered only as a last resort for life-saving measures if patient and/or family would like to pursue this however interventional radiology would be much less invasive and better tolerated by this chronically ill patient if measures need to be taken to stop any active bleeding in his retroperitoneum. (2) Elevated INR Status: Acute (3) Chronic anticoagulation Status: Acute (4) Atrial fibrillation Status: Chronic (5) CHF (congestive heart failure) Status: Chronic (6) CKD (chronic kidney disease) stage 3, GFR 30-59 ml/min Status: Chronic Condition Stable Time Spent: < 30 min Venous Thromboembolism Antithrombotics Is Pt On Any Antithrombotics?: Yes Heart Failure Ejection Fraction %: 46 RVSP (mmHg): 38 Is Patient on JOSE G Inhibitor?: No Is Patient on Beta Carin?: Yes Admission Weight: 181 Problem Qualifiers (1) Atrial fibrillation: Atrial fibrillation type: chronic Qualified Codes: I48.2 - Chronic atrial fibrillation (2) CHF (congestive heart failure): Heart failure type: unspecified Heart failure chronicity: chronic Qualified Codes: I50.9 - Heart failure, unspecified ROSANA WAYNE MD August 18, 2018 19:20
[2018-08-18 19:37] LABS: INR 1.57
--- NOTE | 2018-08-18 19:54 | Miscellaneous Provider Note ---
Miscellaneous Provider Note Note This patient was admitted earlier today. His CT scan returned with a large retroperitoneal bleed involving the right psoas muscle. We have reversed his warfarin with vitamin K and FFP. We have also ordered 2 units of red cells, but there have been issues with antibodies. His Hgb has decreased through the day and he is now having emesis of dark clotted blood. A repeat CT scan is pending report, but it looks like the retroperitoneal bleed is stable in size. We will be administering 2 units of least incompatible blood. ROSANA ESPARZA DO August 18, 2018 19:54
--- NOTE | 2018-08-18 20:15 | NUR ---
Pt transferred to ICU--report given to GAURAV Jesus. No further emesis, pt reports abd pain decreased. Lab phoned, Dr. Sheikh ordered pt to receive 2 units PRBC's of least incompatible blood products. Pt's condition reported to Dr. Sheikh.
[2018-08-18] MEDS: PANTOPRAZOLE SOD(*)40 MG VIAL 80 MG in NS(*) 0.9% 100 ML BAG 100 ML IV SCH (20:40)
[2018-08-18] MEDS ORDERED: diphenhydrAMINE 50 MG/ML VIAL IVP ONE (20:50)
[2018-08-18] MEDS ORDERED: NS(*) 0.9% 500 ML BAG 500 ML IV PRN (21:20)
--- NOTE | 2018-08-18 21:43 | RADIOLOGY IMAGING REPORT ---
FACILITY: [facility] - [place] PATIENT NAME: Candelario Hernandez : 1930 MR: [id number] V: [id number] EXAM DATE: ORDERING PHYSICIAN: ROSANA WAYNE TECHNOLOGIST: Location: [facility] - [place] Patient: Candelario Hernandez : 1930 Visit/Account:[id number] Date of Sevice: 08/18/2018 CT ABDOMEN PELVIS W/O CON HISTORY: Retroperitoneal hematoma. Follow-up. COMPARISON: Earlier same day at 0802 hours. TECHNIQUE: Axial images were obtained from the lung bases through the symphysis pubis without intrave nous contrast. Sagittal and coronal reformats were performed. One of the following dose optimization techniques was utilized in the performance of this exam: Autom ated exposure control; adjustment of the mA and/or kV according to the patient's size; or use of an i terative reconstruction technique. Specific details can be referenced in the facility's radiology CT exam operational policy. CONTRAST: None. FINDINGS: Lower chest: The heart is enlarged. Density of blood within the heart is less than that of the myocar dium. There is coronary artery calcification. There is a trace right pleural effusion, unchanged. The re is mild bronchial thickening in the right lower lobe, and there is bibasilar atelectasis. There ar e stable punctate calcifications in the right lower lobe. Liver: Too small to characterize circumscribed low attenuating lesion in the dome of the liver (image 8 series 2). In the absence of known malignancy, it is considered benign. Gallbladder/biliary: Cholecystectomy. No intrahepatic or extrahepatic ductal dilation. Pancreas: There is mild to moderate pancreatic atrophy. Spleen: Normal. Adrenals: Normal. Kidneys/ureters/bladder/retroperitoneum: 5.5 cm simple left parapelvic renal cyst is unchanged. There are nonobstructing calculi in the left kidney. The right kidney is mildly anteriorly displaced as be fore, due to retroperitoneal hemorrhage. No hydronephrosis. There is mild bilateral cortical thinning . Ureters and bladder are normal. There is hemorrhage along right Gerota fascia and within and along the right anterior, medial, and la teral psoas muscle that also tracks along the anterior surface of the right iliopsoas muscle. A small amount of hemorrhage has ruptured into the peritoneal cavity and tracks along the right external romina ac artery and vein, in the right upper quadrant adjacent to the liver, within both paracolic gutters, into the right inguinal hernia, and dependently within the pelvis. The amount of hemorrhage is uncha nged. GI/mesentery/peritoneal cavity: There is a small type I hiatal hernia, unchanged. There is no bowel o bstruction. There is no wall thickening or pericolonic stranding. The appendix is normal. There is si gmoid and descending colon diverticulosis without diverticulitis. Vessels: There is mild atherosclerotic disease. There is severe calcification of the splenic artery. There is dilation of the infrarenal abdominal aorta, just above the iliac bifurcation. It measures 3. 8 x 4.5 cm (image 72 series 2), unchanged. Nodes: Normal. Pelvis: There is a large fat-containing right inguinal hernia. There are numerous pelvic phleboliths. There are coarse prostate calcifications. Prostate is normal in size. Bones/vertebra/soft tissues: There is stranding within the right anterolateral abdominal wall and sub cutaneous fat that has increased in amount (axial image 100 for example) and tracks into the right up per thigh Hounsfield units are compatible with simple fluid. There is mild dependent subcutaneous ruy ma in the midline. There is mild multilevel degenerative change of the spine. Greatest loss of disc height is at L5-S1, where it is severe. There is 4 mm retrolisthesis of L5 compared to S1. There is mild wedging of L4, L 1, and T12, unchanged. There is severe degenerative change of the hips with mild flattening of the ri ght femoral head. IMPRESSION: 1. No change in the large right retroperitoneal hemorrhage with rupture into the peritoneal space, as de alison above. 2. There is greater edema in the right anterolateral abdominal wall and right upper thigh, likely yi ctive. 3. Trace right pleural effusion is unchanged. 4. Pancolonic diverticulosis without diverticulitis.5. Infrarenal abdominal aortic aneurysm, measurin g 4.5 cm maximal diameter. 6. Density of blood suggests low hematocrit/anemia, unchanged. 7. Coronary artery calcification and cardiomegaly. 8. Right lower lobe peribronchial thickening can be seen with infection/inflammation. Report Dictated By: Lindsay Mendoza at 08/18/2018 9:13 PM Report E-Signed By: Lindsay Mendoza at 08/18/2018 9:39 PM WSN:[id number]
[2018-08-19] VITALS (57 sets, daily range): BP systolic 87–128; BP diastolic 59–107
[2018-08-19 06:00] LABS: PLATELET COUNT, AUTOMATED 232 K/uL (150-450)
[2018-08-19] MEDS: PANTOPRAZOLE SOD(*)40 MG VIAL 80 MG in NS(*) 0.9% 100 ML BAG 100 ML IV SCH ×2 (06:03→18:20)
[2018-08-19 06:05] LABS: INR 1.4
--- NOTE | 2018-08-19 07:56 | General Surgery Progress Note ---
Subjective Progress Notes Subjective Reports feeling better this morning. Had an episode of hematemesis yesterday; PPI gtt started. Repeat CT abd/pel reveals stable retroperitoneal hematoma. He received Vit K, FFP, and pRBC yesterday. Physical Exam Vital Signs Date Time Temp Pulse Resp B/P (MAP) Pulse Ox O2 Delivery O2 Flow Rate FiO2 08/19/18 06:00 99.6 104 25 98/80 (86) 94 Nasal Cannula 2.0 Intake and Output 08/19/18 07:00 Intake Total 3254 ml Output Total 945 ml Balance 2309 ml Intake Oral 840 ml IV Total 1141 ml Blood Product 1273 ml Output Urine Total 425 ml Emesis 520 ml # Voids 2 # Emeses 1 General Appearance: Alert, Awake, No Acute Distress, Afebrile GI: Other (Soft, improved TTP, ecchymoses starting to develop on right flank.) Extremities: Warm, Perfused Result Diagram: 08/19/18 0550 08/19/18 0550 Assessment and Plan Problems: (1) Nontraumatic retroperitoneal hematoma Status: Acute Assessment & Plan: 08/18/18: In general, retroperitoneal hematomas are managed nonoperatively. The 1st step would be to reverse his coagulopathy due to Coumadin. Recommend serial INRs with vitamin K and FFP transfusion until INR is less than 1.5. Would follow H&H closely and transfuse packed red blood cells as needed. If he continues to drop his hemoglobin then may require transfer for interventional radiology to look for active extravasation and embolize it. Would also repeat a CT scan this evening and if the hematoma is actively expanding then would refer for urgent interventional radiology to look for active extravasation and embolization. This patient has significant medical comor bidities and is not a good surgical candidate although surgery would be considered only as a last resort for life-saving measures if patient and/or family would like to pursue this however interventional radiology would be much less invasive and better tolerated by this chronically ill patient if measures need to be taken to stop any active bleeding in his retroperitoneum. 08/19/18: Hematoma is stable. H/H responded to tranfusion. Will plan on EGD today to evaluate hematemesis; continue PPI gtt. Continue conservative management of retroperitoneal hematoma. (2) Hematemesis Status: Acute Assessment & Plan: PPI gtt. EGD today. (3) Elevated INR Status: Acute (4) Chronic anticoagulation Status: Acute (5) Atrial fibrillation Status: Chronic (6) CHF (congestive heart failure) Status: Chronic (7) CKD (chronic kidney disease) stage 3, GFR 30-59 ml/min Status: Chronic Condition Stable. Time Spent: < 30 min Exam Sepsis Risk: Severe Sepsis Risk Problem Qualifiers (1) Hematemesis: Nausea presence: without nausea Qualified Codes: K92.0 - Hematemesis (2) Atrial fibrillation: Atrial fibrillation type: chronic Qualified Codes: I48.2 - Chronic atrial fibrillation (3) CHF (congestive heart failure): Heart failure type: unspecified Heart failure chronicity: chronic Qualified Codes: I50.9 - Heart failure, unspecified ROSANA WAYNE MD August 19, 2018 07:56
[2018-08-19] MEDS: LEVOTHYROXINE SOD 100 MCG VIAL IVP SCH (08:34)
[2018-08-19] MEDS: NS(*) 0.9% 1000 ML BAG 1,000 ML IV PRN ×2 (08:41→23:02)
[2018-08-19] MEDS ORDERED: PROPOFOL EMUL(*) 10MG/ML 20 ML 20 ML ONE (13:38)
--- NOTE | 2018-08-19 14:14 | Hospitalist Progress Note ---
Subjective Progress Notes Subjective 87M admitted for anemia, retroperitoneal bleed. AWA overnight, Hgb stable. No further hematemesis. Physical Exam Vital Signs Date Time Temp Pulse Resp B/P (MAP) Pulse Ox O2 Delivery O2 Flow Rate FiO2 08/19/18 13:30 88 25 100/73 (82) 94 Nasal Cannula 2.0 08/19/18 12:30 99.6 Intake and Output 08/19/18 07:00 Intake Total 3254 ml Output Total 945 ml Balance 2309 ml Intake Oral 840 ml IV Total 1141 ml Blood Product 1273 ml Output Urine Total 425 ml Emesis 520 ml # Voids 2 # Emeses 1 General Appearance: Alert, Awake, No Acute Distress Neuro: No Gross deficits ENT: Normal Cardiovascular: Other (irregularly irregular) Respiratory: No Respiratory Distress GI: Other (RLQ tenderness) Extremities: Soft and Non Tender, Warm, Pulses Integumentary: Skin Intact without Lesion / Mass Result Diagram: 08/19/18 1158 08/19/18 0581 Assessment and Plan Problems: (1) Retroperitoneal bleed Status: Acute Assessment & Plan: Appears stable, if expands or rebleeding occurs may have to consider transfer for IR embolization. Hgb now stabilized after INR reversal. Dr Mathews consulted for help managing and EGD. (2) Hematemesis Status: Acute Assessment & Plan: Secondary to supratherapeutic INR. EGD scheduled, INR reversed. (3) Elevated INR Status: Acute Assessment & Plan: Reversed with vitamin K. Large retroperitoneal bleed, also hematemesis. EGD pending. (4) Dehydration Status: Acute Assessment & Plan: Improved with IV fluids. (5) Atrial fibrillation Status: Chronic Assessment & Plan: Chronic. He has been on metoprolol for rate control, currently on hold. Will also hold his warfarin as his INR is supra-therapeutic. Monitor lab. (6) Hypothyroid Status: Chronic Assessment & Plan: Will place on IV replacement as he will be kept NPO initially. (7) Dementia Status: Chronic Assessment & Plan: Appears mild-moderate. It does not appear he has been on any medication specifically for this. (8) CKD (chronic kidney disease) stage 3, GFR 30-59 ml/min Status: Chronic Assessment & Plan: It appears his baseline creatinine is usually in the 1.5-1.7 range. He had some acute on chronic renal failure due to dehydration. (9) Congestive heart failure Status: Chronic Assessment & Plan: His echocardiogram from 2015 showed EF in mid 40% range. He has been managed with metoprolol, losartan, furosemide. Heart Failure Ejection Fraction %: 46 RVSP (mmHg): 38 Is Patient on JOSE G Inhibitor?: No Is Patient on Beta Carin?: Yes Admission Weight: 181 Exam Sepsis Risk: No Definite Risk Problem Qualifiers (1) Hematemesis: Nausea presence: without nausea Qualified Codes: K92.0 - Hematemesis (2) Atrial fibrillation: Atrial fibrillation type: chronic Qualified Codes: I48.2 - Chronic atrial fibrillation (3) Congestive heart failure: Heart failure type: systolic Heart failure chronicity: chronic Qualified Codes: I50.22 - Chronic systolic (congestive) heart failure SHARDA DUMONT DO August 19, 2018 14:13
--- NOTE | 2018-08-19 14:35 | NUR ---
1435- Reviewed anesthesia consent while still in ICU 1440- Pt brought to preop bay 7, pt is alert and oriented, pt in semi-fowlers position in the ICU bed, pt reports being comfortable and warm 1444- PT VSS, see vs chart for details 1445- Placed pt on tele 1455- Called and informed Dr. Lopez of pt status
--- NOTE | 2018-08-19 15:04 | NUR ---
1500- RN into room, noted a-fib on ECG monitor, Valentin in ICU reports that pt has been in a-fib rhythm, d/c monitor for now.
[2018-08-20 06:10] LABS: INR 1.31
[2018-08-20] MEDS: LEVOTHYROXINE SOD 0.088 MG TAB PO SCH (06:10)
[2018-08-20 06:18] LABS: PLATELET COUNT, AUTOMATED 208 K/uL (150-450)
[2018-08-20 07:37] VITALS: BP 123/70
--- NOTE | 2018-08-20 08:54 | RADIOLOGY IMAGING REPORT ---
FACILITY: [facility] PATIENT NAME: Candelario Hernandez : 1930 MR: [id number] V: [id number] EXAM DATE: ORDERING PHYSICIAN: YAEL CROCKETT TECHNOLOGIST: Location: [facility] - [place] Patient: Candelario Hernandez : 1930 Visit/Account:[id number] Date of Sevice: 08/20/[address] scan without contrast COMPARISONS: Head CT scan without contrast dated July 15, 2017 ADDITIONAL PERTINENT HISTORY: Altered mental status TECHNIQUE: Multiple axial images were obtained from the skull base to the vertex without IV contrast . One of the following dose optimization techniques was utilized in the performance of this exam: Aut omated exposure control; adjustment of the mA and/or kV according to the patient's size; or use of an iterative reconstruction technique. Specific details can be referenced in the facility's radiology CT exam operational policy. FINDINGS: Midline shift: Negative Ventricles: Moderate enlargement of the lateral and third ventricles, stable from previous exam. Brain parenchyma: Continued patchy hypoattenuation within the periventricular and subcortical white matter, nonspecific but likely representing small vessel ischemic change on a chronic basis. Remote appearing lacunar infarct involving the anterior aspects of the right basal ganglion. No intraparenc hymal hemorrhage or mass effect. Extra-axial spaces: Continued severe cerebral atrophy. Intracranial vasculature: Cavernous internal carotid artery calcifications and distal vertebral jose ry calcifications. Osseous structures: Negative Paranasal sinuses and mastoid air cells: Moderate sized mucus retention cyst involving the right max illary sinus. Otherwise negative Surrounding soft tissues and orbits: Negative IMPRESSION: 1. Age related changes as described above. 2. No evidence of acute intracranial pathology. Report Dictated By: Mihir Bustillos MD at 08/20/2018 8:46 AM Report E-Signed By: Mihir Bustillos MD at 08/20/2018 8:49 AM WSN:[id number]
[2018-08-20] MEDS: PANTOPRAZOLE SOD 40 MG TABEC PO SCH (09:32)
[2018-08-20] MEDS: TAMSULOSIN HCL 0.4 MG CAP PO SCH (09:32)
[2018-08-20 11:11] VITALS: BP 118/82
--- NOTE | 2018-08-20 12:47 | General Surgery Progress Note ---
Subjective Progress Notes Subjective No new complaints, seems sleepy and less responsive. Physical Exam Vital Signs Date Time Temp Pulse Resp B/P (MAP) Pulse Ox O2 Delivery O2 Flow Rate FiO2 08/20/18 11:11 97.8 98 18 118/82 (94) 94 Oxy Mask 3.0 Intake and Output 08/20/18 07:00 Intake Total 2042.6 ml Output Total 1070 ml Balance 972.6 ml IV Total 2042.6 ml Output Urine Total 1070 ml General Appearance: Alert, Awake, No Acute Distress, Afebrile GI: Other (Mild right sided TTP with developing ecchymosis.) Extremities: Warm, Perfused Result Diagram: 08/20/18 0752 08/20/18 0535 Assessment and Plan Problems: (1) Nontraumatic retroperitoneal hematoma Status: Acute Assessment & Plan: 08/18/18: In general, retroperitoneal hematomas are managed nonoperatively. The 1st step would be to reverse his coagulopathy due to Coumadin. Recommend serial INRs with vitamin K and FFP transfusion until INR is less than 1.5. Would follow H&H closely and transfuse packed red blood cells as needed. If he continues to drop his hemoglobin then may require transfer for interventional radiology to look for active extravasation and embolize it. Would also repeat a CT scan this evening and if the hematoma is actively expanding then would refer for urgent interventional radiology to look for active extravasation and embolization. This patient has significant medical comorbidities and is not a good surgical candidate although surgery would be considered only as a last resort for life-saving measures if patient and/or family would like to pursue this however interventional radiology would be much less invasive and better tolerated by this chronically ill patient if measures need to be taken to stop any active bleeding in his retroperitoneum. 08/19/18: Hematoma is stable. H/H responded to tranfusion. Will plan on EGD today to evaluate hematemesis; continue PPI gtt. Continue conservative management of retroperitoneal hematoma. 08/20/18: H/H stable. No further hematemesis and vitals stable. EGD without si gns of UGI bleeding (no old/new blood or ulcers, etc in esophagus, stomach, or duodenum). PPI gtt stopped, placed on prophylactic PPI. Continue conservative management of retroperitoneal hematoma. Consider NOT resuming anticoagulation ever due to patient's demonstrated risk of bleeding compared to relatively low risk of CVA with a-fib without anticoagulation, especially given patient's age. (2) Hematemesis Status: Resolved Assessment & Plan: PPI gtt. EGD today. EGD unremarkable. (3) Elevated INR Status: Resolved (4) Chronic anticoagulation Status: Chronic (5) Atrial fibrillation Status: Chronic (6) CHF (congestive heart failure) Status: Chronic (7) CKD (chronic kidney disease) stage 3, GFR 30-59 ml/min Status: Chronic Condition Stable. Time Spent: < 30 min Exam Sepsis Risk: Severe Sepsis Risk Problem Qualifiers (1) Hematemesis: Nausea presence: without nausea Qualified Codes: K92.0 - Hematemesis (2) Atrial fibrillation: Atrial fibrillation type: chronic Qualified Codes: I48.2 - Chronic atrial fibrillation (3) CHF (congestive heart failure): Heart failure type: unspecified Heart failure chronicity: chronic Qualified Codes: I50.9 - Heart failure, unspecified ROSANA WAYNE MD August 20, 2018 12:47
--- NOTE | 2018-08-20 13:06 | Hospitalist Progress Note ---
Subjective Progress Notes Subjective The patient has had a couple of awake apneic events. He desaturates during those periods. He was more confused this morning, but his mental status has improved. He reported feeling a bit nauseated this morning, but no other complaints. Physical Exam Vital Signs Date Time Temp Pulse Resp B/P (MAP) Pulse Ox O2 Delivery O2 Flow Rate FiO2 08/20/18 11:11 97.8 98 18 118/82 (94) 94 Oxy Mask 3.0 Intake and Output 08/20/18 07:00 Intake Total 2042.6 ml Output Total 1070 ml Balance 972.6 ml IV Total 2042.6 ml Output Urine Total 1070 ml General Appearance: Alert, Awake, No Acute Distress Neuro: Other (Slow to answer questions. No facial droop. Equal patient support specialist/dorsiflexion/plantar flexion/elbow flexion. He follows commands, but takes a couple of suggestions to finally follow through.) Cardiovascular: Regular Rate and Rhythm Respiratory: Clear to Auscultation Result Diagram: 08/20/18 0752 08/20/18 0535 Assessment and Plan Problems: (1) Apnea Status: Acute Assessment & Plan: He has had a couple episodes of awake apnea. The patient isn't in distress, but he does desaturate. The head CT was without any acute abnormalities. There are no current offending medications, but he did receive Propofol on 08/19 for the EGD. Will follow. (2) Retroperitoneal bleed Status: Acute Assessment & Plan: Appears stable, if expands or rebleeding occurs may have to consider transfer for IR embolization. The patient had INR reversal with 2 units of FFP and 10mg of Vitamin K on 08/18. He also received 2 units of PRBC from 08/18- 08/19. Hgb now stable. Dr Mathews consulted for help managing. EGD done on 08/19, reportedly without any obvious source for bleeding (pt had had hematemesis). (3) Hematemesis Status: Resolved Assessment & Plan: Secondary to supratherapeutic INR. EGD scheduled, INR reversed. (4) Elevated INR Status: Resolved Assessment & Plan: Reversed with vitamin K. Large retroperitoneal bleed, also hematemesis. Head CT today without evidence of a bleed. (5) Congestive heart failure Status: Chronic Assessment & Plan: His echocardiogram from 2014 showed EF in mid 40% range. He has been managed with metoprolol, losartan, furosemide. Those are on hold secondary to the bleeding concerns. Will restart when metoprolol tomorrow. (6) Dehydration Status: Resolved Assessment & Plan: Improved with IV fluids. (7) Atrial fibrillation Status: Chronic Assessment & Plan: Chronic. He has been on metoprolol for rate control, currently on hold, but continues to be rate controlled. See above. Warfarin stopped and reversed secondary to being supratherapeutic and the patient having bleeding. (8) CKD (chronic kidney disease) stage 3, GFR 30-59 ml/min Status: Chronic Assessment & Plan: It appears his baseline creatinine is usually in the 1.5-1.7 range. He had some acute on chronic renal failure due to dehydration. Will follow. (9) Hypothyroid Status: Chronic Assessment & Plan: Will place on IV replacement as he will be kept NPO initially. (10) Dementia Status: Chronic Assessment & Plan: Appears mild-moderate. It does not appear he has been on any medication specifically for this. Heart Failure Ejection Fraction %: 46 RVSP (mmHg): 38 Is Patient on JOSE G Inhibitor?: No Is Patient on Beta Carin?: Yes Admission Weight: 181 Exam Sepsis Risk: Severe Sepsis Risk Problem Qualifiers (1) Hematemesis: Nausea presence: without nausea Qualified Codes: K92.0 - Hematemesis (2) Congestive heart failure: Heart failure type: systolic Heart failure chronicity: chronic Qualified Codes: I50.22 - Chronic systolic (congestive) heart failure (3) Atrial fibrillation: Atrial fibrillation type: chronic Qualified Codes: I48.2 - Chronic atrial fibrillation YAEL CROCKETT MD August 20, 2018 13:06
[2018-08-20 14:38] VITALS: BP 128/76
--- NOTE | 2018-08-20 15:33 | Medical Nutrition Therapy ---
Nutrition Anthropometrics Height (Inches): 72 Weight (Pounds): 190 Weight (Calculated Kilograms): 86.324 BMI: 25.9 Ugo Nutrition Score: Probably Inadequate Ugo Nutrition Risk Score: 15 Dietary Referral Nutrition Risk Factors: Diff. Swallowing Nutrition Risk Comment: Physical Findings Physical Appearance: Overweight BMI 25-29 Skin Appearance Skin Appearance: Edema Edema Location Modifier: Both Edema Location: Foot Type of Edema: Degree of Edema: non-pitting Gastrointestinal Symptoms GI Symtoms: Vomiting Tube Present: Bowel Sounds: Recent Bowel Pattern: Stool Characteristics: Nutritional Diagnosis Nutritional Risk Acuity 2: Chronic Renal Failure, Dysphagia, Swallowing Problem Nutritional Risk Acuity 3: OR & > 80 yrs, Nausea, COPD Unstable Past Medical History: HX of CHF, Atril Fib, HTN, BPH, CHF, COPD Nutritional Acuity: 2-Moderate Nutrition Diagnosis: Altered GI Function Nutrition Etiology: Physiological Causes Nutrition Problem/Etiology/Sym: Altered GI function related to Physiological causes as evidence by COPD and exasperation Energy Requirement: 2030 (HB AF 1.3 190.3lb) Protein Requirement: 86 (1g/kg) Fluid Requirement: 2030 (1ml/tiffanie) Diet Type: Dysphagia Stage 3 Nutrition Monitoring & Eval Nutrition Goals: Eat 50-100% Meal, Drink > 2 liters/day RD Patient Assessment Time: [address] Assessment Type: RD Re-Assessment Patient Nutrition Acuity: 2-Moderate Follow Up Date: August 20, 2018 Nutritional Comment: 08/18 Pt dx with COPD exaserbation, abdominal pain, dehydration, A-fib, hypothyroid, dementia, CKD-3, and CHF. Pt has difficulty swallowing and was previously on dysphagia diet. Pt is currently on NPO starting 08/18. Pt has high BNP 383, creatinine 2.4, and a BUN of 58. Pt has a low Hgb 9.1 and a Hct 27.6. Will continue to monitor pt. CD 08/20 Pt still shows signs of anemia with very low Hgb 8.1 and Hct 24.6. Pt is now on a dysphagia stage 3 diet. Pt now has a retroperitoneal bleed, hematemesis, and increased INR. Pt just received surgery for retroperitoneal bleed. Will continue to monitor and encourage intake. KRUNAL BROWNE August 20, 2018 10:25
--- NOTE | 2018-08-20 16:02 | EKG ---
FACILITY: [facility] - [place] PATIENT NAME: DARIO HADDAD : [id number] MR: [id number] V: [id number] EXAM DATE: ORDERING PHYSICIAN: YAEL CROCKETT TECHNOLOGIST: INES Blount Reason : CP Blood Pressure : / mmHG Vent. Rate : 101 BPM Atrial Rate : 110 BPM P-R Int : 000 ms QRS Dur : 104 ms QT Int : 362 ms P-R-T Axes : 000 003 156 degrees QTc Int : 469 ms Atrial fibrillation with rapid ventricular response with premature ventricular or aberrantly conducte d complexes Inferior infarct (cited on or before 18-AUG-2018) T inversion consistent with ant/lateral ischemia vs normal variant When compared with ECG of 18-AUG-2018 02:59, T wave inversion now evident in Anterior leads Confirmed by YAEL CROCKETT ([id number]) on 08/20/2018 5:18:42 PM Referred By: BON Confirmed By:YAEL CROCKETT
[2018-08-20] MEDS ORDERED: ACETAMINOPHEN 500 MG TAB PO PRN (18:20)
[2018-08-20 19:02] VITALS: BP 122/83
[2018-08-21 00:33] VITALS: BP 102/71
[2018-08-21] MEDS: LEVOTHYROXINE SOD 0.088 MG TAB PO SCH (05:50)
[2018-08-21 06:00] LABS: PLATELET COUNT, AUTOMATED 233 K/uL (150-450)
[2018-08-21 06:08] LABS: INR 1.46
[2018-08-21 08:06] VITALS: BP 140/80
--- NOTE | 2018-08-21 08:18 | EKG ---
FACILITY: [facility] PATIENT NAME: DARIO HADDAD : [id number] MR: [id number] V: [id number] EXAM DATE: ORDERING PHYSICIAN: YAEL CROCKETT TECHNOLOGIST: INES Blount Reason : CARDIAC Blood Pressure : / mmHG Vent. Rate : 094 BPM Atrial Rate : 080 BPM P-R Int : 000 ms QRS Dur : 104 ms QT Int : 372 ms P-R-T Axes : 000 -02 140 degrees QTc Int : 465 ms Atrial fibrillation Inferior infarct (cited on or before 18-AUG-2018) Abnormal ECG When compared with ECG of 20-AUG-2018 14:53, ST no longer depressed in Anterior leads Confirmed by Steve Banks ([id number]) on 08/21/2018 6:18:20 PM Referred By: BON Confirmed By:Steve Mcgregor
[2018-08-21] MEDS: TAMSULOSIN HCL 0.4 MG CAP PO SCH (09:16)
[2018-08-21] MEDS: METOPROLOL SUCC XL 25 MG TABCR PO SCH (09:16)
[2018-08-21] MEDS: PANTOPRAZOLE SOD 40 MG TABEC PO SCH (09:16)
[2018-08-21] MEDS ORDERED: FUROSEMIDE 40 MG/4 ML VIAL IVP ONE (10:20)
[2018-08-21 11:17] VITALS: BP 126/85
--- NOTE | 2018-08-21 13:46 | RADIOLOGY IMAGING REPORT ---
FACILITY: [facility] [place] PATIENT NAME: Candelario Hernandez : 1930 MR: [id number] V: [id number] EXAM DATE: ORDERING PHYSICIAN: SHARDA KAPOOR TECHNOLOGIST: Location: [facility] [place] Patient: Candelario Hernandez : 1930 Visit/Account:[id number] Date of Sevice: 08/21/2018 Examination: CHEST SINGLE AP Comparison: 08/18/2018 and earlier. History: hypoxia Findings: Cardiac and hilar contour enlargement is unchanged. Aortic atherosclerosis. Background chronic interstitial thickening with increased indistinctness of the bronchovascular ambreen ngs. No lobar consolidation. No pneumothorax or definite effusion. Osseous structures are intact. IMPRESSION: Increased indistinct peribronchial thickening. This is likely in part due to background chronic lung disease although the findings are suspicious for a superimposed acute bronchitis or potentially mild edema. Report Dictated By: Jay Georges MD at 08/21/2018 1:39 PM Report E-Signed By: Jay Georges MD at 08/21/2018 1:43 PM WSN:[email or web address]
--- NOTE | 2018-08-21 13:49 | Hospitalist Progress Note ---
Subjective Progress Notes Subjective 87M admitted for retroperitoneal bleed. More sleepy today, increased O2 needs. Physical Exam Vital Signs Date Time Temp Pulse Resp B/P (MAP) Pulse Ox O2 Delivery O2 Flow Rate FiO2 08/21/18 11:17 97.6 94 24 126/85 (99) 97 Oxy Mask 4.0 Intake and Output 08/21/18 07:00 Intake Total 445 ml Output Total 1000 ml Balance -555 ml Intake Oral 445 ml Output Urine Total 1000 ml # Voids 2 General Appearance: Other (sleepy, mild distress, ) Neuro: No Gross deficits Cardiovascular: Other (irregularly irregular) Respiratory: Other (crackles) GI: Soft and Non-Tender Extremities: Soft and Non Tender, Warm, Pulses, Perfused Result Diagram: 08/21/1854108/21/18541 Assessment and Plan Problems: (1) Type 2 acute myocardial infarction Assessment & Plan: Troponin elevated 0.4 to 2.6, now trending down. Some T wave inversion of anterior leads now resolved. Resumed BB, given extensive bleed discussion with family, they are electing no ASA or heparin at this time. Possible that elevation CHF exacerbation is driving elevation will try diuresing. If CP returns will transfuse one unit PRBC but this will exacerbate CHF. (2) Apnea Status: Acute Assessment & Plan: He has had a couple episodes of awake apnea. The patient isn't in distress, but he does desaturate. The head CT was without any acute abnormalities. There are no current offending medications, but he did receive Propofol on 08/19 for the EGD. Will follow. (3) Retroperitoneal bleed Status: Acute Assessment & Plan: Appears stable, if expands or rebleeding occurs may have to consider transfer for IR embolization. The patient had INR reversal with 2 units of FFP and 10mg of Vitamin K on 08/18. He also received 2 units of PRBC from 08/18- 08/19. Hgb now stable. Dr Mathews consulted for help managing. EGD done on 08/19, reportedly without any obvious source for bleeding (pt had had hematemesis). (4) Hematemesis Status: Resolved Assessment & Plan: Secondary to supratherapeutic INR. EGD negative, INR reversed. (5) Elevated INR Status: Resolved Assessment & Plan: Reversed with vitamin K. Large retroperitoneal bleed, also hematemesis. Head CT today without evidence of a bleed. (6) Congestive heart failure Status: Chronic Assessment & Plan: His echocardiogram from 2014 showed EF in mid 40% range. Holding losartan. Metoprolol restarted. Trial IV Lasix, BNP elevated from 350 at admission to 950. Suspect this is cause elevation of troponin. Echo pending. (7) Dehydration Status: Resolved Assessment & Plan: Improved with IV fluids. (8) Atrial fibrillation Status: Chronic Assessment & Plan: Chronic. He has been on metoprolol for rate control, currently on hold, but continues to be rate controlled. See above. Warfarin stopped and reversed secondary to being supratherapeutic and the patient having bleeding. (9) CKD (chronic kidney disease) stage 3, GFR 30-59 ml/min Status: Chronic Assessment & Plan: It appears his baseline creatinine is usually in the 1.5-1.7 range. He had some acute on chronic renal failure due to dehydration. Will follow. (10) Hypothyroid Status: Chronic Assessment & Plan: Will place on IV replacement as he will be kept NPO initially. (11) Dementia Status: Chronic Assessment & Plan: Appears mild-moderate. It does not appear he has been on any medication specifically for this. Heart Failure Ejection Fraction %: 46 RVSP (mmHg): 38 Is Patient on JOSE G Inhibitor?: No Is Patient on Beta Carin?: Yes Admission Weight: 181 Exam Sepsis Risk: No Definite Risk Problem Qualifiers (1) Hematemesis: Nausea presence: without nausea Qualified Codes: K92.0 - Hematemesis (2) Congestive heart failure: Heart failure type: systolic Heart failure chronicity: chronic Qualified Codes: I50.22 - Chronic systolic (congestive) heart failure (3) Atrial fibrillation: Atrial fibrillation type: chronic Qualified Codes: I48.2 - Chronic atrial fibrillation FOURNIER ANTWONSHARDA August 21, 2018 13:49
[2018-08-21 15:41] VITALS: BP 103/79
[2018-08-21 19:04] VITALS: BP 104/61
[2018-08-21 22:57] VITALS: BP 106/64
[2018-08-22] MEDS: LEVOTHYROXINE SOD 0.088 MG TAB PO SCH (05:30)
[2018-08-22 05:45] LABS: PLATELET COUNT, AUTOMATED 238 K/uL (150-450)
[2018-08-22 08:27] VITALS: BP 128/90
[2018-08-22] MEDS ORDERED: FUROSEMIDE 40 MG TAB PO SCH (09:00)
--- NOTE | 2018-08-22 09:04 | Medical Nutrition Therapy ---
Nutrition Anthropometrics Height (Inches): 72 Weight (Pounds): 190 Weight (Calculated Kilograms): 86.324 BMI: 25.9 Ugo Nutrition Score: Probably Inadequate Ugo Nutrition Risk Score: 14 Dietary Referral Nutrition Risk Factors: Diff. Swallowing Nutrition Risk Comment: Physical Findings Physical Appearance: Overweight BMI 25-29 Skin Appearance Skin Appearance: Edema Edema Location Modifier: Both Edema Location: Foot Type of Edema: Degree of Edema: 1+ Gastrointestinal Symptoms GI Symtoms: Change in Bowel Pattern Tube Present: Bowel Sounds: Recent Bowel Pattern: Stool Characteristics: Nutritional Diagnosis Nutritional Risk Acuity 2: Chronic Renal Failure, Dysphagia, Swallowing Problem Nutritional Risk Acuity 3: OR & > 80 yrs, Nausea, COPD Unstable Past Medical History: HX of CHF, Atril Fib, HTN, BPH, CHF, COPD Nutritional Acuity: 2-Moderate Nutrition Diagnosis: Altered GI Function Nutrition Etiology: Physiological Causes Nutrition Problem/Etiology/Sym: Altered GI function related to Physiological causes as evidence by COPD and exasperation Energy Requirement: 2030 (HB AF 1.3 190.3lb) Protein Requirement: 86 (1g/kg) Fluid Requirement: 2030 (1ml/tiffanie) Diet Type: Dysphagia Stage 3 Drug: Diuretics Drug/Nutrition Recommendations: Check Serum K+ Nutrition Monitoring & Eval Nutrition Goals: Eat 50-100% Meal Nutrition Follow-Up: Poor Intake Nutrition Monitoring: Pt consuming 0-50% of meals. RD Patient Assessment Time: [address] Assessment Type: RD Re-Assessment Patient Nutrition Acuity: 2-Moderate Follow Up Date: August 25, 2018 Nutritional Comment: 08/18 Pt dx with COPD exaserbation, abdominal pain, dehydration, A-fib, hypothyroid, dementia, CKD-3, and CHF. Pt has difficulty swallowing and was previously on dysphagia diet. Pt is currently on NPO starting 08/18. Pt has high BNP 383, creatinine 2.4, and a BUN of 58. Pt has a low Hgb 9.1 and a Hct 27.6. Will continue to monitor pt. CD 08/20 Pt still shows signs of anemia with very low Hgb 8.1 and Hct 24.6. Pt is now on a dysphagia stage 3 diet. Pt now has a retroperitoneal bleed, hematemesis, and increased INR. Pt just received surgery for retroperitoneal bleed. Will continue to monitor and encourage intake. CD 08/22 Pt dx with Type 2 acute myocardial infarction, apnea, and retroperitoneal bleed. Pt on dysphagia 3 diet, RN notes state pt has swallowing difficulty. Pt consuming 0-50% of meals. Pt on furosemide, K wasting diuretic, monitor K levels. Pt Hgb of 8.7 and Hct of 26.6 are decreased but improving. BUN of 68 is increased as is creatinine of 2.10. Elevated Troponin I of 2.400 to 2.250 is elevated indicating cardiac dysfunction. B Naturetic Peptide of 925 is elevated. Monitor for improvement in intakes and swallowing.-KALLI MARQUEZ August 22, 2018 09:04
[2018-08-22] MEDS: TAMSULOSIN HCL 0.4 MG CAP PO SCH (09:09)
[2018-08-22] MEDS: METOPROLOL SUCC XL 25 MG TABCR PO SCH (09:09)
[2018-08-22] MEDS: PANTOPRAZOLE SOD 40 MG TABEC PO SCH (09:09)
--- NOTE | 2018-08-22 15:09 | Hospitalist Progress Note ---
Subjective Progress Notes Subjective The patient denies shortness of breath or pain. Physical Exam Vital Signs Date Time Temp Pulse Resp B/P (MAP) Pulse Ox O2 Delivery O2 Flow Rate FiO2 08/22/18 08:27 97.9 89 20 128/90 (103) 90 Oxy Mask 4.0 Intake and Output 08/22/18 07:00 Intake Total 345 ml Balance 345 ml Intake Oral 345 ml # Voids 7 # Bowel Movements 2 General Appearance: Alert, Awake, No Acute Distress Neuro: Other (Short term memory is poor. ) Eyes: PERRLA Cardiovascular: Other (Irregularly irregular.) Respiratory: Other (Bibasilar rales.) GI: Soft and Non-Tender Extremities: Warm, Perfused Psych: Appropriate Mood & Affect Result Diagram: 08/22/1851108/22/18511 Assessment and Plan Problems: (1) Type 2 acute myocardial infarction Assessment & Plan: Troponin elevated 0.4 to 2.6, now trending down. Some T wave inversion of anterior leads now resolved. Resumed beta carin. Given extensive bleed, discussed with family and they are electing no ASA or heparin at this time. Possible that CHF exacerbation is driving elevation. Oral Lasix restarted on 08/21. Monitor closely. (2) Apnea Status: Acute Assessment & Plan: He has had a couple episodes of awake apnea. The patient isn't in distress, but he does desaturate. The head CT was without any acute abnormalities. There are no current offending medications, but he did receive Propofol on 08/19 for the EGD. Will follow. (3) Retroperitoneal bleed Status: Acute Assessment & Plan: Appears stable, if expands or rebleeding occurs may have to consider transfer for IR for embolization. The patient had INR reversal with 2 units of FFP and 10mg of Vitamin K on 08/18. He also received 2 units of PRBC from 08/18-08/19. Hgb now stable. Dr Mathews consulted for help managing. EGD done on 08/19, reportedly without any obvious source for bleeding (pt had had hematemesis). (4) Hematemesis Status: Resolved Assessment & Plan: Secondary to supratherapeutic INR. EGD negative, INR reversed. (5) Elevated INR Status: Resolved Assessment & Plan: Reversed with vitamin K and FFP. Large retroperitoneal bleed, also hematemesis. Head CT today without evidence of a bleed. (6) Congestive heart failure Status: Chronic Assessment & Plan: His echocardiogram from 2014 showed EF in mid 40% range. Holding losartan. Metoprolol restarted. Trial IV Lasix, BNP elevated from 350 at admission to 950. Suspect this is cause elevation of troponin. Echo pending. (7) Dehydration Status: Resolved Assessment & Plan: Improved with IV fluids. (8) Atrial fibrillation Status: Chronic Assessment & Plan: Chronic. He has been on metoprolol for rate control, currently on hold, but continues to be rate controlled. See above. Warfarin stopped and reversed secondary to being supratherapeutic and the patient having bleeding. (9) CKD (chronic kidney disease) stage 3, GFR 30-59 ml/min Status: Chronic Assessment & Plan: It appears his baseline creatinine is usually in the 1.5-1.7 range. He had some acute on chronic renal failure due to dehydration. Will follow. (10) Hypothyroid Status: Chronic Assessment & Plan: Continue levothyroxine. (11) Dementia Status: Chronic Assessment & Plan: Appears mild-moderate. It does not appear he has been on any medication specifically for this. Time Spent on Plan of Care: < 30 min Heart Failure Ejection Fraction %: 46 RVSP (mmHg): 38 Is Patient on JOSE G Inhibitor?: No Is Patient on Beta Carin?: Yes Admission Weight: 181 Exam Sepsis Risk: No Definite Risk Problem Qualifiers (1) Hematemesis: Nausea presence: without nausea Qualified Codes: K92.0 - Hematemesis (2) Congestive heart failure: Heart failure type: systolic Heart failure chronicity: chronic Qualified Codes: I50.22 - Chronic systolic (congestive) heart failure (3) Atrial fibrillation: Atrial fibrillation type: chronic Qualified Codes: I48.2 - Chronic atrial fibrillation MARGARITA CROCKER MD August 22, 2018 15:09
[2018-08-22 16:45] VITALS: BP 109/78
[2018-08-22 23:09] VITALS: BP 119/75
[2018-08-23 06:05] LABS: PLATELET COUNT, AUTOMATED 267 K/uL (150-450)
[2018-08-23] MEDS: LEVOTHYROXINE SOD 0.088 MG TAB PO SCH (06:16)
[2018-08-23 07:19] VITALS: BP 137/90
[2018-08-23] MEDS: PANTOPRAZOLE SOD 40 MG TABEC PO SCH (08:29)
[2018-08-23] MEDS: TAMSULOSIN HCL 0.4 MG CAP PO SCH (08:29)
[2018-08-23] MEDS: METOPROLOL SUCC XL 25 MG TABCR PO SCH (08:29)
[2018-08-23] MEDS: D5 1/2 NS(*) 1000 ML BAG 1,000 ML IV PRN ×2 (09:32→22:09)
--- NOTE | 2018-08-23 10:25 | Hospitalist Progress Note ---
Subjective Progress Notes Subjective He c/o some mild abdominal/flank pain. No CP/SOB at present. Physical Exam Vital Signs Date Time Temp Pulse Resp B/P (MAP) Pulse Ox O2 Delivery O2 Flow Rate FiO2 08/23/18 07:30 96 Nasal Cannula 1.5 08/23/18 07:19 97.6 84 24 137/90 (106) Intake and Output 08/23/18 06:59 Intake Total 615 ml Balance 615 ml Intake Oral 615 ml # Voids 3 # Bowel Movements 1 # Emeses 2 General Appearance: Alert, Awake Cardiovascular: Other (Irregular) Respiratory: Clear to Auscultation GI: Other (Soft with some mild tenderness reported with palpation diffusely/BS present) Extremities: Warm, Perfused, Other (large ecchymoses over right flank) Integumentary: Generalized Fragile Skin Result Diagram: 08/23/1853208/23/18532 Assessment and Plan Problems: (1) Retroperitoneal bleed Status: Acute Assessment & Plan: Appears stable, if expands or any rebleeding occurs may have to consider transfer for IR for embolization. The patient had supra-therapeutic INR and had reversal with 2 units of FFP and 10mg of Vitamin K on 08/18. He also received 2 units of PRBC from 08/18-08/19. Hgb/Hct now stable. Dr. Bisi goyal onsulted for help managing possible GI bleeding. EGD done on 08/19, reportedly without any obvious source for bleeding (patient apparently had hematemesis). (2) Type 2 acute myocardial infarction Assessment & Plan: Troponin elevated to a maximum of 2.660 and trended down. Some T wave inversion of anterior leads now resolved. He is on a beta carin (metoprolol). Given extensive bleed, He will not receive ASA or heparin at this time. Monitor closely. (3) Apnea Status: Acute Assessment & Plan: He has had a couple episodes of awake apnea. The patient isn't in distress, but he does desaturate. The head CT was without any acute abnormalities. There are no current offending medications, but he did receive Propofol on 08/19 for the EGD. Will follow. (4) Hematemesis Status: Resolved Assessment & Plan: Most likely secondary to supra-therapeutic INR. EGD negative, INR was reversed. (5) Elevated INR Status: Resolved Assessment & Plan: Reversed with vitamin K and FFP. Large retroperitoneal bleed, also had hematemesis. Head CT without evidence of a bleed. (6) Congestive heart failure Status: Chronic Assessment & Plan: His echocardiogram from 2014 showed EF in mid 40% range. Holding losartan. Metoprolol restarted. BNP did elevate from 350 at admission to 950. Echocardiogram pending. Will restart diuretics as needed. (7) Dehydration Status: Resolved Assessment & Plan: Improved with IV fluids. (8) Atrial fibrillation Status: Chronic Assessment & Plan: Chronic. He has been managed with metoprolol for rate control. Warfarin has been stopped and reversed secondary to being supra- therapeutic and acute bleeding. (9) CKD (chronic kidney disease) stage 3, GFR 30-59 ml/min Status: Chronic Assessment & Plan: It appears his baseline creatinine is usually in the 1.5-1.7 range. He had some acute on chronic renal failure due to dehydration. Will follow. (10) Hypothyroid Status: Chronic Assessment & Plan: Continue levothyroxine. (11) Dementia Status: Chronic Assessment & Plan: Appears mild-moderate. It does not appear he has been on any medication specifically for this. Heart Failure Ejection Fraction %: 46 RVSP (mmHg): 38 Is Patient on JOSE G Inhibitor?: No Is Patient on Beta Carin?: Yes Admission Weight: 181 Exam Sepsis Risk: No Definite Risk Problem Qualifiers (1) Hematemesis: Nausea presence: without nausea Qualified Codes: K92.0 - Hematemesis (2) Congestive heart failure: Heart failure type: systolic Heart failure chronicity: chronic Qualified Codes: I50.22 - Chronic systolic (congestive) heart failure (3) Atrial fibrillation: Atrial fibrillation type: chronic Qualified Codes: I48.2 - Chronic atrial fibrillation SANCHEZ CROCKER MD August 23, 2018 10:25
--- NOTE | 2018-08-23 12:17 | NUR ---
Occupational Therapy Impression Initial OT/PT evaluation completed. Total A x2 bed mobility in/out. Max Ax1-2 to maintain upright position seated EOB x3min. Increased assist required as pt fatigued. Right lateral lean corrected with v/c's and occasional physical assist. VSS throughout. Pt return to supine in bed. No complaint of pain. Rec return to [facility] with OT services when medically appropriate. Occupational Therapy Goals 1) Pt will be Mod A UB/LB dressing. 2) Pt will be Mod A toilet task. 3) Pt will be Mod A grooming/hygiene. Patient's Goal
--- NOTE | 2018-08-23 12:42 | NUR ---
Physical Therapy Impression PT eval complete. Pt requires total assist x2 to perform bed mobility and Max A x1 to maintain sitting at EOB. Recommend Pt be discharged to [facility] (previous residence) with continued therapy services. Physical Therapy Goals 1. Min A bed mobility. 2. Min A transfers. 3. Min A gait x 150' with RW. Patient's Goals
--- NOTE | 2018-08-23 13:37 | SLP BEDSIDE SWALLOW EVALUATION ---
BEDSIDE DYSPHAGIA regional director: Priyanka Gonzalez MS, [facility]-ERP CONSULTANT Type of Assessment: Bedside dysphagia evaluation Patient: Candelario Hernandez : [birth year] Evaluation Date: 08/23/2018 BACKGROUND The patient is an 87 year old male admitted to [facility] on 08/18/2018 with decreased level of awareness, vomiting, and diaphoresis. He was found to have a retroperitoneal bleed. Pt was also dehydrated with elevated INR and hematemesis. An ST consult was requested to evaluate swallow function due to documented hx of dysphagia, and RN report of coughing associated with PO intake. Primary Medical Diagnosis: retroperitoneal bleed Medical History: dementia, chronic a fib, CKD stage 3, congestive heart failure, dysphagia Pain Scale (0-10): 0, pt did not report or display any discomfort during evaluation. LOC / Participation: Alert, participated in all evaluation tasks. Follows Instructions: Yes, single level with ERP CONSULTANT model. Hard of hearing, delayed processing speed. Orientation: Alert, appears oriented to self. Functional Communication Deficits impact swallow function/safety, or response to therapy: Yes, pt will benefit from constant supervision to provide reminders for swallow strategies during PO intake. Pt also requires assistance with self- feeding. DYSPHAGIA ASSESSMENT Sialorrhea: No Xerostomia: No Supplemental Oxygen Use: Yes, 1.5L via nasal cannula. COPD Dx: Yes Pain with Swallow: Denies Baseline diet: nectar thick liquids, regular solids Pt was seen at the bedside for clinical swallowing assessment. Pt was alert and participatory throughout encounter. Shortness of breath and baseline coughing were observed prior to initiation of PO trials. Verbal responses were limited, and the pt became increasingly short of breath with attempts to engage in discourse. Vocal quality was normal. Oral mechanism examination was remarkable for generalized labial, lingual, and mandibular weakness. Lingual and mandibular shaking was also noted with movement. Pt exhibited a shallow, clavicular breathing pattern with oral vs nasal respiration. Pt struggled to obtain a complete labial seal, which appeared reflective of oral breathing pattern paired with generalized oral weakness. Administered PO trials of thin liquids via tsp sized cup sips, nectar thick liquids via cup and straw, pureed solids, mechanically altered solids, advanced solids, and regular solids. Pt required consistent utensil loading and [id number] assistance with self-feeding. Overall, the pt presents with mild to moderate oral and suspected pharyngeal dysphagia. Etiology is consistent with generalized weakness paired with COPD and compromised coordination of respiration and deglutition. Oral phase deficits characterized by prolonged oral preparation, reduced bolus cohesion, and mild to moderate post-swallow residue with scatter throughout oral cavity. Quantity of residual material increased in correlation with advancing trials of solid textures. Alternation of consistencies successfully promoted oral cavity clearance. The pt also became increasingly short of breath during mastication of solid textures with relatively higher severity when presented with advanced and regular solids in comparison to mechanically altered or pureed consistencies. Pharyngeally, the patient exhibited suspected delay in swallow onset and delayed, aggressive coughing with trials of thin liquids. All other trials were tolerated with no overt indicators of aspiration. Recommend mechanically altered / minced and moist solids to compensate for generalized oral weakness, prolonged oral preparation, and difficulty coordinating oral preparation with respiration. Given aggressive coughing in response to thin liquids, recommend provision of nectar thick liquids at this time. It is recommended that medications be administered one at a time and immersed in a pureed solid to assist with bolus containment/cohesion. Recommendations were discussed with the pt and RN. Attempted to contact the speech-language pathologist at the [facility] without success. A detailed written list of compensatory strategies and diet modification recommendations was posted at the bedside. Will continue to assess diet tolerance, provide patient/caregiver instruction in compensatory strategies, and modify recommendations as appropriate. Of note, pt participated in a modified barium swallow study at [facility] in 2016. Results revealed moderate oral phase dysphagia with anterior spillage of liquids, delayed anterior to posterior bolus transit, and lingual pumping. No penetration or aspiration occurred. Obtaining a repeat, objective measure of swallow function may be appropriate to more thoroughly assess oropharyngeal anatomy and physiology to assist in evolving recommendations as the pt begins to medically stabilize. ROSA: Aspiration Risk: level 3, two diet consistencies restricted, recommend constant supervision at meals RECOMMENDATIONS 1. Diet: dysphagia level II / mechanically altered (IDDSI 5, minced and moist) solids, thin liquids (IDDSI 2, mildly thick) 2. Medications: one at a time, immersed in puree 3. Compensatory Techniques: upright positioning with PO intake, remain upright 30 min after PO intake, small bites/sips, one bite/sip at a time, alternate consistencies, check oral cavity for pocketing/residue after meals, complete oral care after meals, take rest breaks for respiration 4. Supervision: constant supervision with PO, assist with tray set-up and self- feeding as indicated Speech Therapy Need ST will continue monitor diet tolerance, provide diet upgrade recommendations as indicated, and instruct patient/caregiver re: safe swallow strategies to minimize risk for aspiration. Rehabilitation Prognosis: Good PLAN OF CARE Goals Pt and/or caregivers will demonstrate comprehension of compensatory swallow strategies during participation in mealtime activities with 90% acc when provided with min verbal cues to support safe tolerance of least restrictive diet. Pt will consume regular solids and nectar thick liquids (consistent with baseline) with no overt indicators of aspiration (coughing, vocal changes, throat clearing, etc) during 90% of attempts with min verbal/visual cues. Thank you for this referral. Please call [phone] with any questions or concerns. Priyanka Gonzalez M.S., CCC-ERP CONSULTANT [*] [facility]
--- NOTE | 2018-08-23 13:38 | NUR ---
ST Encounter Bedside dysphagia assessment complete. Please see full report for detailed information. Overall, the pt presents with mild to moderate oral and suspected pharyngeal dysphagia. Etiology is consistent with generalized weakness paired with COPD and compromised coordination of respiration and deglutition. Recommend mechanically altered / minced and moist solids to compensate for generalized oral weakness, prolonged oral preparation, and difficulty coordinating oral preparation with respiration. Given aggressive coughing in response to thin liquids, recommend provision of nectar thick liquids. Obtaining an objective measure of swallow function (MBSS) may also be appropriate to more thoroughly assess oropharyngeal anatomy and physiology, and to assist in evolving recommendations as the pt begins to medically stabilize. Of note, the pt participated in an MBSS in 2016 at [facility]. No penetration or aspiration occurred. Deficits were all oral vs pharyngeal. Refer to EMR for further info. RECOMMENDATIONS 1. Diet: dysphagia level II / mechanically altered (IDDSI 5, minced and moist) solids, nectar thick liquids (IDDSI 2, mildly thick) 2. Medications: one at a time, immersed in puree 3. Compensatory Techniques: upright positioning with PO intake, remain upright 30 min after PO intake, small bites/sips, one bite/sip at a time, alternate consistencies, check oral cavity for pocketing/residue after meals, complete oral care after meals, take rest breaks for respiration 4. Supervision: constant supervision with PO, assist with tray set-up and self-feeding as indicated
[2018-08-23 14:19] VITALS: BP 127/73
[2018-08-23 18:51] VITALS: BP 103/82
[2018-08-24 00:30] VITALS: BP 127/80
[2018-08-24] MEDS: LEVOTHYROXINE SOD 0.088 MG TAB PO SCH (06:02)
[2018-08-24 06:06] LABS: PLATELET COUNT, AUTOMATED 269 K/uL (150-450)
[2018-08-24 07:21] VITALS: BP 133/85
[2018-08-24] MEDS: TAMSULOSIN HCL 0.4 MG CAP PO SCH (09:12)
[2018-08-24] MEDS: METOPROLOL SUCC XL 25 MG TABCR PO SCH (09:12)
[2018-08-24] MEDS: PANTOPRAZOLE SOD 40 MG TABEC PO SCH (09:12)
[2018-08-24] MEDS: D5 1/2 NS(*) 1000 ML BAG 1,000 ML IV PRN (11:18)
--- NOTE | 2018-08-24 11:21 | NUR ---
Physical Therapy Impression PT/OT co-treat for pt safety and time split for billing purposes. Pt participated in scoot to edge of bed using a hooklying position to assist with bridging. Mod/Max assist x 2 person, required with use of draw sheet to complete supine to sit. Pt then demonstrated increased strength and balance during sit at edge of bed, with slight L) sided lean, but easily corrects with verbal cues. Pt requires Mod/Max assist x 2 person, with bed raised to complete stand into EZ lift. Max assist of one to encourage knee and hip extension for standing within EZ lift for change of brief and pericare. Pt maintained SpO2 in safe range on supplemental O2 throughout session and rest breaks were utilized when pt demos shortness of breath. Pt returned to bed and left with nursing at end of treatment session. Physical Therapy Goals 1. Min A bed mobility. 2. Min A transfers. 3. Min A gait x 150' with RW. Patient's Goals
[2018-08-24 14:15] VITALS: BP 129/84
--- NOTE | 2018-08-24 15:13 | NUR ---
ST Encounter Pt seen at bedside to analyze diet tolerance, assess potential for diet advancement, and to evaluate response to compensatory swallow strategies. Pt cont to present with moderate oral and suspected pharyngeal dysphagia. Oral preparation remains prolonged with increased shortness of breath during mastication of solid textures. Pt benefits from small, single bites and alternation of liquids/solids to promote oral cavity clearance. Pt also requires rest breaks for respiration, particularly with consumption of solids. Pt with increased coughing in response to trials of nectar thick liquids. Cough was alleviated with bolus size reduction to single, tsp sized amounts via cup, spoon, or straw. Pt unable to implement compensations in the absence of max assist, and requires hand-over- hand for self feeding. RECOMMENDATIONS 1. Diet: dysphagia level II / mechanically altered (IDDSI 5, minced and moist) solids, nectar thick liquids (IDDSI 2, mildly thick) 2. Medications: one at a time, immersed in puree 3. Compensatory Techniques: upright positioning with PO intake, remain upright 30 min after PO intake, small bites/sips, one bite/sip at a time, alternate consistencies, check oral cavity for pocketing/residue after meals, complete oral care after meals, take rest breaks for respiration 4. Supervision: constant supervision with PO, assist with tray set-up and self-feeding as indicated ST Encounter 5. Consider obtaining an objective measure of swallow function (MBSS) to more thoroughly assess oropharyngeal anatomy and physiology, and to assist in evolving recommendations as the pt begins to medically stabilize. Attempted to contact family re: recommendation. Discussed with RN.
--- NOTE | 2018-08-24 15:13 | NUR ---
Occupational Therapy Impression Mod-Max Ax2 bed mobility supine to sit and sit to supine. Pt with improved tolerance sitting upright EOB. Requiring occasional v/c's for left lateral lean, able to self-correct. Max Ax2 sit<>stand with EZ from elevated bed. Assist x2 standing upright in EZ lift and changing brief. VSS throughout. Continue POC. Occupational Therapy Goals 1) Pt will be Mod A UB/LB dressing. 2) Pt will be Mod A toilet task. 3) Pt will be Mod A grooming/hygiene. Patient's Goal
--- NOTE | 2018-08-24 15:50 | Hospitalist Progress Note ---
Subjective Progress Notes Subjective 87M admitted for retroperitoneal bleed. AWA overnight, Hgb stable. Possible d/c tomorrow. Physical Exam Vital Signs Date Time Temp Pulse Resp B/P (MAP) Pulse Ox O2 Delivery O2 Flow Rate FiO2 08/24/18 14:15 97.7 84 20 129/84 (99) 94 Nasal Cannula 1.0 Intake and Output 08/24/18 07:00 Intake Total 270 ml Balance 270 ml Intake Oral 270 ml # Voids 6 # Bowel Movements 6 General Appearance: Awake, No Acute Distress Neuro: No Gross deficits Cardiovascular: Other (irregularly irregular) Respiratory: No Respiratory Distress GI: Soft and Non-Tender Extremities: Soft and Non Tender, Warm, Pulses, Perfused Result Diagram: 08/24/1853808/24/18538 Assessment and Plan Problems: (1) Retroperitoneal bleed Status: Acute Assessment & Plan: Appears stable, if expands or any rebleeding occurs may have to consider transfer for IR for embolization. The patient had supra-therapeutic INR and had reversal with 2 units of FFP and 10mg of Vitamin K on 08/18. He also received 2 units of PRBC from 08/18-08/19. Hgb/Hct now stable. Dr. Mathews consulted for help managing possible GI bleeding. EGD done on 08/19, reportedly without any obvious source for bleeding (patient apparently had hematemesis). (2) Type 2 acute myocardial infarction Assessment & Plan: Troponin elevated to a maximum of 2.660 and trended down. Some T wave inversion of anterior leads now resolved. He is on a beta carin (metoprolol). Given extensive bleed, He will not receive ASA or heparin at this time. Monitor closely. (3) Apnea Status: Acute Assessment & Plan: He has had a couple episodes of awake apnea. The patient isn't in distress, but he does desaturate. The head CT was without any acute abnormalities. There are no current offending medications, but he did receive Propofol on 08/19 for the EGD. Will follow. (4) Hematemesis Status: Resolved Assessment & Plan: Most likely secondary to supra-therapeutic INR. EGD negative, INR was reversed. (5) Elevated INR Status: Resolved Assessment & Plan: Reversed with vitamin K and FFP. Large retroperitoneal bleed, also had hematemesis. Head CT without evidence of a bleed. (6) Congestive heart failure Status: Chronic Assessment & Plan: His echocardiogram from 2014 showed EF in mid 40% range. Holding losartan. Metoprolol restarted. BNP did elevate from 350 at admission to 950. Echocardiogram pending. Will restart diuretics as needed. (7) Dehydration Status: Resolved Assessment & Plan: Improved with IV fluids. (8) Atrial fibrillation Status: Chronic Assessment & Plan: Chronic. He has been managed with metoprolol for rate control. Warfarin has been stopped and reversed secondary to being supra- therapeutic and acute bleeding. (9) CKD (chronic kidney disease) stage 3, GFR 30-59 ml/min Status: Chronic Assessment & Plan: It appears his baseline creatinine is usually in the 1.5-1.7 range. He had some acute on chronic renal failure due to dehydration. Will follow. (10) Hypothyroid Status: Chronic Assessment & Plan: Continue levothyroxine. (11) Dementia Status: Chronic Assessment & Plan: Appears mild-moderate. It does not appear he has been on any medication specifically for this. Heart Failure Ejection Fraction %: 46 RVSP (mmHg): 38 Is Patient on JOSE G Inhibitor?: No Is Patient on Beta Acrin?: Yes Admission Weight: 181 Exam Sepsis Risk: No Definite Risk Problem Qualifiers (1) Hematemesis: Nausea presence: without nausea Qualified Codes: K92.0 - Hematemesis (2) Congestive heart failure: Heart failure type: systolic Heart failure chronicity: chronic Qualified Codes: I50.22 - Chronic systolic (congestive) heart failure (3) Atrial fibrillation: Atrial fibrillation type: chronic Qualified Codes: I48.2 - Chronic atrial fibrillation SHARDA DUMONT DO August 24, 2018 15:49
[2018-08-24 20:11] VITALS: BP 133/86
[2018-08-25 05:22] VITALS: BP 142/95
[2018-08-25] MEDS: LEVOTHYROXINE SOD 0.088 MG TAB PO SCH (05:27)
[2018-08-25] MEDS: TAMSULOSIN HCL 0.4 MG CAP PO SCH (10:01)
[2018-08-25] MEDS: METOPROLOL SUCC XL 25 MG TABCR PO SCH (10:01)
[2018-08-25] MEDS: PANTOPRAZOLE SOD 40 MG TABEC PO SCH (10:02)
[2018-08-25] MEDS ORDERED: MORPHINE 2 MG/ML SYR IVP PRN (10:20)
[2018-08-25] MEDS ORDERED: LORazepam 2 MG/ML VIAL IVP PRN (10:20)
--- NOTE | 2018-08-25 10:28 | Hospitalist Progress Note ---
Subjective Progress Notes Subjective He was admitted with retroperitoneal bleed. He is sleeping throughout exam this morning. Physical Exam Vital Signs Date Time Temp Pulse Resp B/P (MAP) Pulse Ox O2 Delivery O2 Flow Rate FiO2 08/25/18 05:22 97.7 87 20 142/95 (111) 94 Nasal Cannula 1.0 Intake and Output 08/25/18 01:00 Intake Total 1825 ml Balance 1825 ml Intake Oral 240 ml IV Total 1585 ml # Voids 6 # Bowel Movements 3 General Appearance: No Acute Distress, Afebrile Respiratory: No Respiratory Distress Psych: Other (sleeping) Result Diagram: 08/24/1853808/24/18538 Assessment and Plan Problems: (1) Need for comfort care Assessment & Plan: At this time, family has decided they would like to pursue comfort care. He has decreased alertness this morning. He has not been eating well. Will have senior materials planner help with disposition. (2) Retroperitoneal bleed Status: Acute Assessment & Plan: Appears stable, if expands or any rebleeding occurs may have to consider transfer for IR for embolization. The patient had supra-therapeutic INR and had reversal with 2 units of FFP and 10mg of Vitamin K on 08/18. He also received 2 units of PRBC from 08/18-08/19. Hgb/Hct now stable. Dr. Mathews consulted for help managing possible GI bleeding. EGD done on 08/19, reportedly without any obvious source for bleeding (patient apparently had hematemesis). (3) Type 2 acute myocardial infarction Assessment & Plan: Troponin elevated to a maximum of 2.660 and trended down. Some T wave inversion of anterior leads now resolved. He is on a beta carin (metoprolol). Given extensive bleed, He will not receive ASA or heparin at this time. Will stop beta carin secondary to comfort care. (4) Apnea Status: Acute Assessment & Plan: He has had a couple episodes of awake apnea. The patient isn't in distress, but he does desaturate. The head CT was without any acute abnormalities. There are no current offending medications, but he did receive Propofol on 08/19 for the EGD. (5) Hematemesis Status: Resolved Assessment & Plan: Most likely secondary to supra-therapeutic INR. EGD negat veronica, INR was reversed. (6) Elevated INR Status: Resolved Assessment & Plan: Reversed with vitamin K and FFP. Large retroperitoneal ble ed, also had hematemesis. Head CT without evidence of a bleed. (7) Congestive heart failure Status: Chronic Assessment & Plan: His echocardiogram from 2014 showed EF in mid 40% range. Holding losartan. Metoprolol stopped. BNP did elevate from 350 at admission to 950. Echocardiogram pending. Will restart diuretics as needed. (8) Dehydration Status: Resolved Assessment & Plan: Improved with IV fluids. (9) Atrial fibrillation Status: Chronic Assessment & Plan: Chronic. He has been managed with metoprolol for rate control. Warfarin has been stopped and reversed secondary to being supra-therapeutic and acute bleeding. (10) CKD (chronic kidney disease) stage 3, GFR 30-59 ml/min Status: Chronic Assessment & Plan: It appears his baseline creatinine is usually in the 1.5-1.7 range. He had some acute on chronic renal failure due to dehydration. Will follow. (11) Hypothyroid Status: Chronic Assessment & Plan: Continue levothyroxine. (12) Dementia Status: Chronic Assessment & Plan: Appears mild-moderate. It does not appear he has been on any medication specifically for this. Heart Failure Ejection Fraction %: 46 RVSP (mmHg): 38 Is Patient on JOSE G Inhibitor?: No Is Patient on Beta Carin?: Yes Admission Weight: 181 Exam Sepsis Risk: No Definite Risk Problem Qualifiers (1) Hematemesis: Nausea presence: without nausea Qualified Codes: K92.0 - Hematemesis (2) Congestive heart failure: Heart failure type: systolic Heart failure chronicity: chronic Qualified Codes: I50.22 - Chronic systolic (congestive) heart failure (3) Atrial fibrillation: Atrial fibrillation type: chronic Qualified Codes: I48.2 - Chronic atrial fibrillation TEN APPLEP August 25, 2018 10:28
--- NOTE | 2018-08-25 10:32 | NUR ---
PHYSICAL THERAPY INFORMATION TRANSFER SHEET BED MOBILITY: Moderate Assistance Maximum Assistance 2 person assist TRANSFERS: Maximum Assistance 2 person assist GAIT: ' with and Weightbearing Status: STAIRS: with . EXERCISES: Verbalizes Needs: Yes Understands Directions Yes Cooperative: Yes Family Teaching: No Physical Therapy Comment:
[2018-08-25] MEDS ORDERED: MORP100S32 PO (11:17)
[2018-08-25] MEDS ORDERED: LORA-1455 PO (11:17)
--- NOTE | 2018-08-25 11:24 | Hospitalist Depart ---
Discharge Summary Reason for Hosp/Final Diag: (1) Need for comfort care Hospital Course & Plan: At this time, family has decided they would like to pursue comfort care. He has decreased alertness this morning. He has not been eating well. The mechanical planner sent referral for [facility] to help with comfort care at [facility]. Will write for Roxanol and Ativan prn until hospice can see patient. (2) Retroperitoneal bleed Status: Acute Hospital Course & Plan: Appears stable, if expands or any rebleeding occurs may have to consider transfer for IR for embolization. The patient had supra- therapeutic INR and had reversal with 2 units of FFP and 10mg of Vitamin K on 08/18. He also received 2 units of PRBC from 08/18-08/19. Hgb/Hct now stable. Dr. Mathews consulted for help managing possible GI bleeding. EGD done on 08/19, reportedly without any obvious source for bleeding (patient apparently had hematemesis). (3) Type 2 acute myocardial infarction Hospital Course & Plan: Troponin elevated to a maximum of 2.660 and trended down. Some T wave inversion of anterior leads now resolved. He is on a beta carin (metoprolol). Given extensive bleed, He will not receive ASA or heparin at this time. Will stop beta carin secondary to comfort care. (4) Apnea Status: Acute Hospital Course & Plan: He has had a couple episodes of awake apnea. The patient isn't in distress, but he does desaturate. The head CT was without any acute abnormalities. There are no current offending medications, but he did receive Propofol on 08/19 for the EGD. (5) Hematemesis Status: Resolved Hospital Course & Plan: Most likely secondary to supra-therapeutic INR. EGD negative, INR was reversed. (6) Elevated INR Status: Resolved Hospital Course & Plan: Reversed with vitamin K and FFP. Large retroperitoneal bleed, also had hematemesis. Head CT without evidence of a bleed. (7) Congestive heart failure Status: Chronic Hospital Course & Plan: His echocardiogram from 2014 showed EF in mid 40% range. Holding losartan. Metoprolol stopped. BNP did elevate from 350 at admission to 950. Echocardiogram pending. Will restart diuretics as needed. (8) Dehydration Status: Resolved Hospital Course & Plan: Improved with IV fluids. (9) Atrial fibrillation Status: Chronic Hospital Course & Plan: Chronic. He has been managed with metoprolol for rate control. Warfarin has been stopped and reversed secondary to being supra- therapeutic and acute bleeding. (10) CKD (chronic kidney disease) stage 3, GFR 30-59 ml/min Status: Chronic Hospital Course & Plan: It appears his baseline creatinine is usually in the 1.5-1.7 range. He had some acute on chronic renal failure due to dehydration. Will follow. (11) Hypothyroid Status: Chronic Hospital Course & Plan: Continue levothyroxine. (12) Dementia Status: Chronic Hospital Course & Plan: Appears mild-moderate. It does not appear he has been on any medication specifically for this. Departure Latest Vital Signs Vital Signs 08/25/18 05:22 Temp 97.7 Pulse 87 Resp 20 B/P (MAP) 142/95 (111) Pulse Ox 94 O2 Delivery Nasal Cannula O2 Flow Rate 1.0 Weight (Pounds): 203 Weight (Ounces): 5.0 Result Diagram: 08/24/18 0539 08/24/18538 Condition: Improved Discharge: Assisted, Hospice Discharge Instructions Home Meds Active Scripts Lorazepam (ATIVAN) 0.5 Mg Tablet, 0.5 MG PO Q4-6H, #12 TAB Prov:TEN APPLE [facility] 08/25/18 Morphine Sulfate 20 MG/ML Oral Solution (ROXANOL 20 MG/ML) 100 Mg/5 Ml Solution, 10 MG PO Q4H PRN for PAIN, #200 ML Prov:TEN APPLE [facility] 08/25/18 Discontinued Reported Medications Acetaminophen (TYLENOL EXTRA STRENGTH) 500 Mg Tablet, 500 MG PO, TAB 07/15/17 Warfarin Sodium (WARFARIN SODIUM) 5 Mg Tablet, 5 MG PO QDAY, TAB 07/15/17 Polyethylene Glycol 3350 (MIRALAX) 17 Gm Powd.pack, 8.5 GM PO DAILY, PKT 06/19/16 Aspirin (ASPIR 81) 81 Mg Tablet.dr, 81 MG PO QDAY, TAB 06/19/16 Furosemide (FUROSEMIDE) 40 Mg Tablet, 1 TAB PO DAILY, TAB 06/19/16 Sodium Fluoride (DENTA 5000 PLUS) 51 Gm Cream..g., 51 GM DT 06/19/16 Docusate Sodium (COLACE) 100 Mg Capsule, 100 MG PO, CAPSULE 06/19/16 Cyclosporine (RESTASIS) 1 Each Droperette, 1 EACH OP 06/19/16 Atorvastatin Calcium (LIPITOR) 10 Mg Tablet, 1 TAB PO QDAY, TAB 06/19/16 Melatonin (MELATONIN) 3 Mg Tablet, 3 MG PO 06/19/16 Dextran 70/Hypromellose (ARTIFICIAL TEARS) 1 Each Droperette, 1 EACH OP BID 06/19/16 Cholecalciferol (Vitamin D3) (VITAMIN D) 1,000 Unit Tablet, 1000 UNIT PO DAILY 06/19/16 Venlafaxine Hcl (VENLAFAXINE HCL ER) 37.5 Mg Cap.er.24h, 37.5 MG PO QDAY 06/19/16 Multivitamin (MULTI VITAMIN DAILY) 1 Each Tablet, 1 EACH PO 06/19/16 Losartan Potassium (LOSARTAN POTASSIUM) 25 Mg Tablet, 25 MG PO QDAY 06/19/16 Levothyroxine Sodium (LEVOTHYROXINE SODIUM) 88 Mcg Tablet, 88 MCG PO QDAY 06/19/16 Bisacodyl (DULCOLAX) 10 Mg Supp.rect, 10 MG RC, SUPP.RECT 06/19/16 Metoprolol Succinate (METOPROLOL SUCCINATE) 25 Mg Tab.er.24h, 1 TAB PO QDAY, TAB 01/19/15 Tamsulosin Hcl (Flomax) 0.4 Mg Cap, 0.4 MG PO QHS, 0 Refills 12/17/10 Oxybutynin Chloride (Ditropan) 5 Mg Tab, 10 MG PO HS, 0 Refills TAKE TWO 5 MG TABLETS ONCE PER DAY. 12/17/10 Diet: Regular Activity: As Tolerated, With Walker Special Instructions: Take Roxanol and Ativan as needed for comfort. Stop all medications, unless needed for comfort. Copies to: ROSANA GEE MD ; Venous Thromboembolism Antithrombotics Is Pt On Any Antithrombotics?: Yes Heart Failure Ejection Fraction %: 46 RVSP (mmHg): 38 Is Patient on JOSE G Inhibitor?: No Is Patient on Beta Carin?: Yes Admission Weight: 181 Problem Qualifiers (1) Hematemesis: Nausea presence: without nausea Qualified Codes: K92.0 - Hematemesis (2) Congestive heart failure: Heart failure type: systolic Heart failure chronicity: chronic Qualified Codes: I50.22 - Chronic systolic (congestive) heart failure (3) Atrial fibrillation: Atrial fibrillation type: chronic Qualified Codes: I48.2 - Chronic atrial fibrillation TEN APPLE August 25, 2018 11:24
--- NOTE | 2018-08-25 15:39 | Medical Nutrition Therapy ---
Nutrition Anthropometrics Height (Inches): 72 Weight (Pounds): 203 Weight (Calculated Kilograms): 92.079 BMI: 27.5 Ugo Nutrition Score: Probably Inadequate Ugo Nutrition Risk Score: 13 Dietary Referral Nutrition Risk Factors: Diff. Swallowing Nutrition Risk Comment: Physical Findings Physical Appearance: Overweight BMI 25-29 Skin Appearance Skin Appearance: Edema Edema Location Modifier: Both Edema Location: Foot Type of Edema: Degree of Edema: 1+ Gastrointestinal Symptoms GI Symtoms: Change in Bowel Pattern Tube Present: Bowel Sounds: Recent Bowel Pattern: Stool Characteristics: Nutrition/Food History Decreased Appetite Poor Skipped Meals: Yes Breakfast: 12.5 Lunch: 0 Dinner: 0 Nutritional Diagnosis Nutritional Risk Acuity 1: No Appetite Nutritional Risk Acuity 2: Chronic Renal Failure, Dysphagia, Swallowing Problem Nutritional Risk Acuity 3: OR & > 80 yrs, Nausea, COPD Unstable Past Medical History: HX of CHF, Atril Fib, HTN, BPH, CHF, COPD Nutritional Acuity: 1-High Nutrition Diagnosis: Altered GI Function Nutrition Etiology: Physiological Causes Nutrition Problem/Etiology/Sym: Altered GI function related to Physiological causes as evidence by COPD and exasperation Energy Requirement: 2030 (HB AF 1.3 190.3lb) Protein Requirement: 86 (1g/kg) Fluid Requirement: 2030 (1ml/tiffanie) Diet Type: Dysphagia Stage 3 Nutrition Intervention: Between meal supplement Diet Comment To [facility]: OFFER SUPPLEMENT Nutrition Monitoring & Eval Nutrition Goals: Eat 50-100% Meal, Drink > 2 liters/day RD Patient Assessment Time: [address] Assessment Type: RD Re-Assessment Patient Nutrition Acuity: 1-High Follow Up Date: August 26, 2018 Nutritional Comment: 08/18 Pt dx with COPD exaserbation, abdominal pain, dehydration, A-fib, hypothyroid, dementia, CKD-3, and CHF. Pt has difficulty swallowing and was previously on dysphagia diet. Pt is currently on NPO starting 08/18. Pt has high BNP 383, creatinine 2.4, and a BUN of 58. Pt has a low Hgb 9.1 and a Hct 27.6. Will continue to monitor pt. CD 08/20 Pt still shows signs of anemia with very low Hgb 8.1 and Hct 24.6. Pt is now on a dysphagia stage 3 diet. Pt now has a retroperitoneal bleed, hematemesis, and increased INR. Pt just received surgery for retroperitoneal bleed. Will continue to monitor and encourage intake. CD 08/22 Pt dx with Type 2 acute myocardial infarction, apnea, and retroperitoneal bleed. Pt on dysphagia 3 diet, RN notes state pt has swallowing difficulty. Pt consuming 0-50% of meals. Pt on furosemide, K wasting diuretic, monitor K levels. Pt Hgb of 8.7 and Hct of 26.6 are decreased but improving. BUN of 68 is increased as is creatinine of 2.10. Elevated Troponin I of 2.400 to 2.250 is elevated indicating cardiac dysfunction. B Naturetic Peptide of 925 is elevated. Monitor for improvement in intakes and swallowing.-AK 08/25 Pt is now a dysphagia stage 2 diet and has no appetite. Pt at 25% of a small breakfast and none of lunch and dinner which was a stage 1 meal. Pt has low K+ 3.4 likely to furosemide, but pt is no longer on it. Pt has low Hgb 9.1 and very low Hct 26.6. Pt has high BUN 55 and creatinine 2. To help with intake pt will be offered a supplement. Pt has had a 13lb wt increase since 08/18, but also has edema. Expect to see a decrease in wt as edema resolves. Will continue to monitor and encourage intake. KRUNAL BROWNE August 25, 2018 10:33
== END 2018-08-25 13:10 | disposition home or self-care (01) | DRG 393 ==
LOC: ER 02:44 → MED 04:40 → ICU 20:05 → MED 08-19 17:00
PROVIDERS: ADMIT Internal Medicine; ATTEND Internal Medicine
PROC: 30233K1 Transfusion of Nonautologous Frozen Plasma into Peripheral Vein, Percutaneous Approach (ICD-10-PCS; 2018-08-18)
PROC: 30233N1 Transfusion of Nonautologous Red Blood Cells into Peripheral Vein, Percutaneous Approach (ICD-10-PCS; 2018-08-18)
PROC: 0DJ08ZZ Inspection of Upper Intestinal Tract, Via Natural or Artificial Opening Endoscopic (ICD-10-PCS; principal; 2018-08-19 16:20)
DX: K66.1 Hemoperitoneum (principal); I50.23 Acute on chronic systolic (congestive) heart failure; I21.A1 Myocardial infarction type 2; I13.0 Hypertensive heart and chronic kidney disease with heart failure and stage 1 through stage 4 chronic kidney disease, or unspecified chronic kidney disease; N17.9 Acute kidney failure, unspecified; K92.0 Hematemesis; I48.2 Chronic atrial fibrillation; N18.3 Chronic kidney disease, stage 3 (moderate); Z51.5 Encounter for palliative care; F03.90 Unspecified dementia, unspecified severity, without behavioral disturbance, psychotic disturbance, mood disturbance, and anxiety; J44.9 Chronic obstructive pulmonary disease, unspecified; E03.9 Hypothyroidism, unspecified; N40.0 Benign prostatic hyperplasia without lower urinary tract symptoms; E86.0 Dehydration; R79.1 Abnormal coagulation profile; Z66 Do not resuscitate; K21.9 Gastro-esophageal reflux disease without esophagitis; E78.5 Hyperlipidemia, unspecified; K44.9 Diaphragmatic hernia without obstruction or gangrene; R13.11 Dysphagia, oral phase; G47.00 Insomnia, unspecified; K22.2 Esophageal obstruction; Z79.01 Long term (current) use of anticoagulants; Z90.49 Acquired absence of other specified parts of digestive tract; Z91.81 History of falling
CPT/HCPCS: 36415; 70450; 71045; 74176; 82040; 82150; 82247; 82310; 82374; 82435; 82565; 82947; 83605; 83690; 83735; 83880; 84075; 84132; 84155; 84295; 84450; 84460; 84484; 84520; 85014; 85018; 85025; 85610; 86850; 86870; 86880; 86900; 86901; 86902; 86906; 86920; 86922; 93005; 93306; 94640; 96361; 96374; 96375; 97163; 97166; 99284; A4340; C1758; C9113; J1200; J1940; J2405; J2704; J2930; J3430; J7030; J7040; J7050; J7613; P9016; P9059

== ENCOUNTER → 2018-08-18 | Outpatient (CLI) | payer MEDICARE, OTHER ==
[2016-06-20 12:52] VITALS: BMI 24.7
[~2018-08-18] MED LIST changes: +LORA-1455 PO; +MORP100S32 PO
== END ==
LOC: AMB 02:16
DX: R10.84 Generalized abdominal pain (principal); R41.82 Altered mental status, unspecified; R53.1 Weakness
CPT/HCPCS: A0425; A0427